=== PATIENT | female | born 2005 | race Caucasian/White ===

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

== ENCOUNTER 2023-07-27 14:00 | Outpatient (CLI) | payer OTHER, SELFPAY ==
--- OUTSIDE RECORDS SUMMARY | 2023-07-27 14:04 | XMS_ITS | Encounter Summary ---
Author Name Unknown Organization [facility] Address [address] [facility] [place] [address] Phone Care Team Providers Care Ham Boner Name Role Phone Unavailable Primary Care Provider Unavailabl e Reason for Visit * Reason Comments Follow-up Encounter Details Date Type Department Care Team (Late st Contact Info) Description 05/09/2023 Documentation Only [facility] [address] [place] [id number] Chato Zazueta, PharmD [address] [place], [place] [id number] Follow-up Social History Tobacco Use Types Packs/Day Years Used Date Smoking Tobacco: Never Assessed Sex and Gender Information Value Date Recorded Sex Assigned at Not on file Gender Identity Not on file Sexual Orientation Not on file documented as of this encounter Progress Notes * Chato Zazueta, PharmD - 05/09/2023 3:49 PM CSTSummary: nPEP follow up Called Clarissa. Clarissa reported that she is taking the medicines as prescribed is finding that ondansetron helps with nausea caused my the regimen. Advised her to call us on [phone] if any problems or if ondansetron is going to run out. She agreed that could call her back at 14 days. Chato Zazueta, PharmD, 05/09/2023 3:51 PM STOCK BLANK HANDLER documented in this encounter Plan of Treatment Not on file documented as of this encounter Visit Diagnoses Not on filedocumented in this encounter
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
--- OUTSIDE RECORDS SUMMARY | 2023-07-27 14:04 | XMS_ITS | Encounter Summary ---
Author Name Unknown Organization [facility] Address [address] [place] [id number] Phone Care Team Providers Care Chief Clinical Officer Name Role Phone Unavailable Primary Care Provider Unavailabl e Encounter Details Date Type Department Care Team (Late st Contact Info) Description 05/07/2023 ZAY COLLAZO [address] [place] [address] Rachel Younger RN [facility] [address] [place] [address] Social History Tobacco Use Types Packs/Day Years Used Date Smoking Tobacco: Never Assessed Sex and Gender Information Value Date Recorded Sex Assigned at Not on file Gender Identity Not on file Sexual Orientation Not on file documented as of this encounter Plan of Treatment Not on file documented as of this encounter Visit Diagnoses Not on filedocumented in this encounter
--- OUTSIDE RECORDS SUMMARY | 2023-07-27 14:04 | XMS_ITS | Encounter Summary ---
Author Name Unknown Organization [facility] Address [address] [place] [id number] Phone Care Team Providers Care Resident Hall Director Name Role Phone Unavailable Primary Care Provider Unavailabl e Encounter Details Date Type Department Care Team (Latest Contact Info) Description 05/07/2023 Travel Social History Tobacco Use Types Packs/Day Years [...]
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
--- OUTSIDE RECORDS SUMMARY | 2023-07-27 14:04 | XMS_ITS | Clinical Summary ---
Author Name Unknown Organization [facility] Address [place], [place] [address] Care Team Providers Care Manager Equipment Name Role Phone Noelle Peña MD Primary Care Provi rosanne Allergies No known active allergies Medications Medication Sig Dispensed Refills Start Date End Date Status EPINEPHrine (EPIPEN) 0.3 mg/0.3 mL injection INJECT 0.3 MG IM ONCE 0 11/22/2017 Active Adapalene 0.3 % topical gel APPLY PEA SIZED AMOUNT TO FACE NIGHTLY 08/24/2019 Active clindamycin 1% (CLEOCIN-T) 1 % lotion USE EVERY MORNING DIRECTED 10/24/2019 Active hydrocortisone 2.5% cream APPLY TO NOSE CREASES TWICE DAILY DIRECTED 08/24/2019 Active ondansetron (ZOFRAN ODT) 8 mg disintegrating tablet PLEASE SEE ATTACHED FOR DETAILED DIRECTIONS 03/05/2020 Active lamoTRIgine (LAMICTAL) 200 mg tablet Take 200 mg by mouth once daily. 04/26/2021 Active LORazepam (ATIVAN) 1 mg tablet TAKE 12 TO 1 TABLET BY MOUTH EVERY SIX TO EIGHT HOURS NEEDED FOR PANIC ATTACKS. 05/06/2021 Active traZODone (DESYREL) 50 mg tablet TAKE 1-2 TABLET BY MOUTH EVERY NIGHT NEEDED START WITH 1 TABLET, MAY INCREASE TO 2 TABLETS DEPENDING ON RESPONSE 05/06/2021 Active acetaminophen (TYLENOL) 325 mg tabletIndications:S/ P laparoscopy Take 1-2 Tablets (325-650 mg) by mouth every 4 hours if needed (mild pain). Max acetaminophen dose: 4000mg in 24 hrs. 100 Tablet 12/01/2021 Active ibuprofen (ADVIL; MOTRIN) 200 mg tabletIndications:S/ P laparoscopy Take 2-4 Tablets (400-800 mg) by mouth every 6 hours if needed for Pain (mild pain). 100 Tablet 12/01/2021 Active sertraline (ZOLOFT) 100 mg tablet Take 100 mg by mouth. 03/09/2022 Active diphenhydrAMINE (BENADRYL) 25 mg tablet Take 25 mg by mouth. 06/12/2022 Active dextroamphetamine-am phetamine (ADDERALL XR) 10 mg Extended-Release capsule TAKE 1 CAPSULE BY MOUTH EVERY MORNING WITH FOOD Active lamoTRIgine (LAMICTAL XR) 200 mg Extended-Release tablet 1 tablet Active SUMAtriptan (IMITREX) 50 mg tabletIndications:Mi graine with aura and without status migrainosus, not intractable Take 0.5 Tablets (25 mg) by mouth every 2 hours if needed for Migraine. Give at minimum 2hrs apart. Max Dose: 200mg per 24hrs. 20 Tablet 10/28/2022 Active propranoloL (INDERAL) 20 mg tabletIndications:PO TS (postural orthostatic tachycardia syndrome) TAKE 1 TABLET (20 MG) BY MOUTH ONCE DAILY. 30 Tablet 2 02/11/2023 Active Hospital, Clinic, or Other Facility Administered Medication Ordered Dose Route Frequency Start Date End Date Status etonogestrel subdermal implant (NEXPLANON) 1 EachIndications:Nexplanon insertion 1 Each Sdrm Q 3 YEARS 02/16/2021 Active Active Problems Problem Noted Date Diagnosed Date Recurrent streptococcal tonsillitis 10/28/2022 Tonsillar and adenoid hypertrophy 10/28/2022 Migraine with aura and witho ut status migrainosus, not intractable 10/28/2022 S/P laparoscopy - diagnostic, no endometriosis n oted 12/01/2021 S/P cystoscopy - grossly normal findings 022 Encounter for Nexplanon removal 12/01/2021 Constipation by delayed colonic transit 06/02/19 Overactive bladder 06/01/2021 Dysuria 06/01/2021 POTS (postural orthostatic tachycardia syndrome) 06/01/2021 Generalized anxiety disorder 09/25/2018 Mild episode of recurrent major depressive disor rosanne 09/25/2018 Resolved Problems Problem Noted Date Diagnosed Date Resolved Date IUD (intrauterine device) in place 12/01/2021 10/28/2022 Encounter for IUD insertion 12/01/2021 10/28/2022 Migraine with aura and with status migrainosus, not intractable 11/11/2021 10/28/2022 Eating disorder 11/03/2020 10/28/2022 Ganglion of left wrist 09/05/201801/05 Overview: Two Adjustment disorder with mix ed anxiety and depressed mood 04/04/2018 09/25/2018 Osteochondroma of left tibia 01/30/2018 04/04/2018 Anxiety 06/24/2017 09/25/2018 Encounters Date Type Department Care Team Description 06/13/2023 Orders Only [facility] Scanner 1 scan: (1-Ord) [facility], CHEST 2 VIEWS, 06/13/2023 from Last 3 Months Immunizations Name Administration Dates Next Due COVID-19 vaccine ([employer] 30mcg/0.3mL) 12YO+ GALDINO-SUCROSE PF, MDV 11/05/2021 COVID-19 vaccine ([employer] 30mcg/0.3mL) PF, MDV 01/31/2021 DTaP-HIB (TriHIBIT) 08/27/2004 MGrO-IaxP-ABE (Pediarix) 2003,2003,0 2003 DTaP-IPV (Kinrix) 10/02/2008 HIB PRP-OMP (PedvaxHIB) 2003,2003 HIB PRP-T (ActHIB,Hiberix) 2003 HPV 9 (Gardasil 9) 11/28/2018,09/16/2017 Hepatitis A (Peds) 10/02/2008,12/21/2006 Influenza A (H1N1), Inactivated 12/04/2019 Influenza A (H1N1), Live Intranasal 01/21/2009 Influenza Virus, Unspecified 02/02/2008, 12/21/2006,03/02/2006,01/12,01/01/2004 Influenza, IIV4 02/16/2021,01/06/2018 Influenza, IIV4 (Age 6-35 Mos) 03/02/2006,2004,01/01/2004 Influenza,CCIIV4 PRESERV FREE 12/21/2006 Influenza,LAIV4 Live Intrana elly (Flumist) 01/18/2020,01/05/2019,02/19/2013,02/06,01/08/2010,02/02/2008 MMR 10/02/2008,05/21/2004 Meningococcal Vaccine (Menveo) 01/18/2020,2015 Pneumococcal conj 7-Valent (Prevnar 7) 0 08/27/2004,2003,2003,07/24 Tdap 11/07/2015 Varicella Vaccine 10/02/2008,05/21/2004 Family History Medical History Relation Name Comments OCD Mother Anxiety disorder Paternal Aunt Anesthesia Problem No Family History Clotting disorder No Family History Relation Name Status Comments Mother Paternal Aunt Social History Tobacco Use Types Packs/Day Years Used Date Smoking Tobacco: Never Smokeless Tobacco: Never Tobacco Cessation:Counseling Given: No Comments:no exposure Alcohol Use Standard Drinks/Week Comments Not Currently 0 (1 standard drink = 0.6 oz pur e alcohol) PHQ-2 Answer Date Recorded PHQ-2 TOTAL SCORE 3 10/28/2022 Social Connections Answer Date Recorded Frequency of Communication with Friends and Fami ly Not on file 03/21/2021 Financial Resource Strain Answer Date R ecorded Difficulty of Paying Living Expenses Not on file 03/21/2021 Difficulty of Paying Living Expenses Not on file 03/21/2021 Sex and Gender Information Value Date Recorded Sex Assigned at Not on file Gender Identity Not on file Sexual Orientation Not on file Obstetrics History Para Term AB IAB SAB Ectopic Multiple Livin g Live Births 0 0 0 0 0 0 0 0 0 0 0 Last Filed Vital Signs Vital Sign Reading Time Taken Comments Blood Pressure 95/65 10/28/2022 8:22 AM CDT Pulse 86 10/28/2022 8:22 AM CDT Temperature 36.7 ??C (98.1 ??F) 12/01/2021 1:14 PM CD T Respiratory Rate 15 12/01/2021 1:47 PM CDT Oxygen Saturation 96% 10/28/2022 8:22 AM CDT Inhaled Oxygen Concentration - - Weight 63.9 kg (140 lb 12.8 oz) 10/28/2022 8:22 AM CDT Height 173 cm (5' 8.11) 10/28/2022 8:22 AM CDT Body Mass Index 21.34 10/28/2022 8:22 AM CDT Plan of Treatment Upcoming Encounters Date Type Department Care Team (Late st Contact Info) Description 07/28/2023 11:05 AM CDT Office Visit [facility] [address] [place] [address] Noelle Peña MD [address] [place] [address] Health Maintenance Due Date Last Done Comments HIV for age 15-65 2018 Hepatitis C screening for age 18-79 2021 Well Child Check for age 3-20 06/01/2022 06/01/2021, 01/18/2020, 04/04/2018 COVID-19 vaccine series ( season) 2022 11/05/2021, 01/31/2021, 11/17/2020 Chlamydia for age 16-24 06/13/2023 06/13/19 23 (Verified in Care Everywhere or Patient Record), 11/05/2021, 06/01/2021, Additional history exists BMI (ht and wt on same day) for age 18+ 10/29/2023 10/28/2022, 11/05/2021, 06/01/2021 Depression screening for age 12+ 10/29/2023 10/28/2022, 06/01/2021, 02/16/2021, Additional history exists Influenza for age 9-49 11/20/2023 , 01/18/2020, 12/04/2019, Additional history exists Tetanus booster 11/06/2025 11/07/2015 Pneumococcal series for age 6-64 Aged Out 08/27/2004, 2003, 2003, Additional history exists No longer eligible based on patient's age to complete this topic Tdap Completed 11/07/2015 HPV series for age 9-26 Completed 11/28/2018, 09/16 Meningococcal series for age 11-21 Completed 01/18/2020, 11/07/2015 Procedures Procedure Name Priority Date/Time Associated Diagnosis Comments SCAN-RADIOLOGY REPORT 06/13/2023 12:00 AM CDT GC CHLAMYDIA TRACH PROBE Routine 11/05/2021 10:00 AM CDT Pelvic pain from Last 3 Months or Most Recently Relevant to Health Maintenance Results * SCAN-RADIOLOGY REPORT (06/13/2023 12:00 AM CDT) Anatomical Region Laterality Modality Other Scanner OTHER * GC & CHLAMYDIA DNA PCR [[id number]] (11/05/2021 10:00 AM CDT) CHLAMYDIA PROBE Negative 2:34 AM CDT [facility] N GONORRHOEAE PROBE Negative 11/06/2021 2:34 AM CDT [facility] Other VAGINAL SWAB / Unknown Non-Blood / Unknown 11/05/2021 10:00 AM CDT 11/05/2021 10:19 AM CDT Gladis Yang MD MICROBIOLOGY [facility] [address] [place] [address], from Last 3 Months or Most Recently Relevant to Health Maintenance Advance Directives * Full Code (Latest Code Status on File) Date Activated Date Inactivated Comments 12/01/2021 9:51 AM 12/01/2021 4:34 PM Question Answer Comments Code Status Discussion: Reviewed Preferences Care Teams Manager Equipment Relationship Specialty Start Date End Date Noelle Peña MD [address] [place] [address] PCP - General Pediatric 06/22/17
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
--- OUTSIDE RECORDS SUMMARY | 2023-07-27 14:04 | XMS_ITS | Encounter Summary ---
Author Name Unknown Organization [facility] Address [address] [place] [address] Phone Care Team Providers Care Director Institution Name Role Phone Unavailable Primary Care Provider Unavailabl e Encounter Details Date Type Department Care Team (Late st Contact Info) Description 05/30/2023 Documentation Only [facility] [place] [address] [place] [id number] Jesus Sofia, PharmD [address] [place] [address] Social History Tobacco Use Types Packs/Day Years Used Date Smoking Tobacco: Never Assessed Sex and Gender Information Value Date Recorded Sex Assigned at Not on file Gender Identity Not on file Sexual Orientation Not on file documented as of this encounter Progress Notes * Jesus Sofia, PharmD - 05/30/2023 2:19 PM CDT nPEP 2 week follow up call placed and pt's nausea is completely gone. She feels like she will finish meds and will call us with any questions. Jesus Sofia, PharmD, 05/30/2023 2:20 PM documented in this encounter Plan of Treatment Not on file documented as of this encounter Visit Diagnoses Not on filedocumented in this encounter
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
--- OUTSIDE RECORDS SUMMARY | 2023-07-27 14:05 | XMS_ITS | Clinical Summary ---
Author Name Unknown Organization [facility] Address [address] [place] [address] Care Team Providers Care Mopper Name Role Phone Noelle Peña MD Primary Care Provider [phone] Source Comments You are receiving this document as you are listed as the primary care provider,follow-up provider, or the patient has been referred to you for consultation.This is in compliance with the Medicare and[facility] EHR Incentive Program,which states Providers who transition their patient to another setting of careor provider of care or refers their patient to another provider of care shouldprovide summary care record for each transition of care or referral. [facility] Allergies No known active allergies Medications Medication Sig Dispensed Refills Start Date End Date Status aluminum chloride (DRYSOL) 20 % external solution Apply topically. 10/25/2017 A ctive cetirizine (ZYRTEC) 10 MG tablet TAKE 0.5 TABLET BY MOUTH TWICE A DAY DIRECTED 6 12/28/2017 Active EPINEPHrine (EPIPEN) 0.3 MG/0.3ML injection INJECT 0.3 MG IM ONCE 0 11/22/2017 Active Norethin Trevor-Eth Estrad-FE (JUNELFE04/09) 1-20 MG-MCG tablet Take 1 Tablet by mouth. 01/06/2018 Active hydrOXYzine HCl (ATARAX) 10 MG tablet TAKE 1 TABLET BY MOUTH EVERY 8 HOURS IF NEEDED. 2 04/04/2018 Active acetaminophen (TYLENOL) 500 MG tablet Take 1 Tablet by mouth every 4 hours as needed for Pain (Mild Pain). Maximum acetaminophen dose is 4000 mg in 24 hours 100 Tablet 11 09/15/2018 Active ibuprofen (MOTRIN) 200 MG tablet Take 2 Tablets by mouth every 6 hours as needed for Pain (Mild Pain). This may be safely mixed with the prescription pain medications (oxycodone, hydrocodone or tramadol.)?? This may also be safely mixed with acetaminophen. 100 Tablet 09/15/2018 Active DULoxetine (CYMBALTA) 20 MG capsule TAKE 1 CAPSULE BY MOUTH EVERY EVENING AFTER MEAL 09/26/2019 Active clindamycin (CLEOCIN T) 1 % lotion USE EVERY MORNING DIRECTED 08/24/2019 Active adapalene (DIFFERIN) 0.3 % gel APPLY PEA SIZED AMOUNT TO FACE NIGHTLY 08/24/2019 Active hydrocortisone 2.5 % cream APPLY TO NOSE CREASES TWICE DAILY DIRECTED 08/24/2019 Active prazosin (MINIPRESS) 1 MG capsule TAKE 1 CAPSULE BY MOUTH EVERYDAY AT BEDTIME 09/26/2019 Active tolterodine (DETROLLA) 4 MG 24 hour release capsule 04/04/2019 Acti ve mupirocin calcium (BACTROBAN) 2 % cream Apply topically three times a day. 15 g 02/06/2020 Active Additional Information Patient not taking.Reported on 12/23/2021 ursodiol (ACTIGALL) 300 MG capsule 03/18/2020 Active omeprazole (PRILOSEC) 40 MG capsule Take 40 mg by mouth daily before breakfast. 03/27/2020 Active ondansetron (ZOFRAN-ODT) 8 MG disintegrating tablet PLEASE SEE ATTACHED FOR DETAILED DIRECTIONS 03/05/2020 Active methylPREDNISolone (MEDROL 21 TABLET DOSEPACK) 4 MG tablet Follow package directions 21 Tablet 05/06/2020 Active Additional Information Patient not taking.Reported on 07/23/2021 fluocinonide (LIDEX) 0.05 % external solution APPLY TO AFFECTED AREAS OF THE SCALP TWICE DAILY DIRECTED 06/30/2020 Active ketoconazole (NIZORAL) 2 % shampoo 06/30/2020 Active propranolol (INDERAL) 20 MG tablet 07/15/2020 Active amphetamine-dextroam phetamine (ADDERALL) 5 MG tablet TAKE ONE TABLET BY MOUTH TWICE A DAY IN THE MORNING AFTER BREAKFAST AND AROUND NOON 11/12/2020 Active DULoxetine (CYMBALTA) 30 MG capsule 90 mg daily. 01/28/2021 Active lamoTRIgine (LAMICTAL) 25 MG tablet TAKE ONE TABLET DAILY FOR 2 WEEKS THEN TWO TABLETS DAILY FOR 2 WEEKS 11/12/2020 Active LORazepam (ATIVAN) 0.5 MG tablet TAKE 1-2 TABLET BY MOUTH EVERY SIX TO EIGHT HOURS NEEDED FOR PANIC ATTACKS. 02/04/2021 Active QUEtiapine ER (SEROQUEL XR) 50 MG 24 hour release tablet TAKE 1-2 TABLETS BY MOUTH AT BEDTIME. START WITH TAKING 1 TABLET AT BEDTIME, DEPENDING ON RESPONSE MAY INCREASE TO 2 TABLETS NIGHTLY AFTER 1 12/09/2020 Active MICROGESTIN FE 1.5-30 MG-MCG tablet Take 1 Tablet by mouth daily. 01/01/2021 Active Active Problems Problem Noted Date Diagnosed Date Osteochondroma of left tibia 01/31/2018 Overview: Added automatically from request for surgery [id number] Cough 02/11/2007 Immunizations Name Administration Dates Next Due [id number] (Pediarix) 2003,2003,0 2003 DTaP-IPV (Kinrix, 4-6 yrs) 10/02/2008 DTaP/Hib 08/27/2004 Flu Vac Preserv Free (3+yrs) 12/21/2006 Flu Vac Preserv Free (6-35 mo) 03/02/2006,2004,01/01/2004 H1n1 Laiv Medimmune 2-49 Yr (Intranasal) 01/21/2009 HepA Ped/Adol (1-18 yrs) 10/02/2008,12/21/2006 Hib (ActHIB) 2003 Hib (PedvaxHIB) 2003,2003 Influenza LAIV (Nasal, 2-49 yrs) 02/19/2013,12/20,02/02/2008 Influenza Vaccine TIV, Nasal 02/06/2011 MCV4 Menveo 2m.+ (two vial) 11/07/2015 MMR 10/02/2008,05/21/2004 Pneumococcal 7, PED 08/27/2004, 4,2003,2003 TDAP (BOOSTRIX) 11/07/2015 Varicella 10/02/2008,05/21/2004 Family History Medical History Relation Name Comments Migraines Mother OCD Mother Heart Disease Paternal Grandfather Rheumatologic Disease Paternal Grandmother Amblyopia/Strabismus Negative Family History Cataract Negative Family History Diabetes Negative Family History Glaucoma Negative Family History Macular Degeneration Negative Family History Retinal Detachment Negative Family History Relation Name Status Comments Father Alive Mother Alive Maternal Grandmother Alive Paternal Grandfather Alive Paternal Grandmother Alive Social History Tobacco Use Types Packs/Day Years Used Date Smoking Tobacco: Never Smokeless Tobacco: Never Alcohol Use Standard Drinks/Week Comments Yes 0 (1 standard drink = 0.6 oz pur e alcohol) Sex and Gender Information Value Date Recorded Sex Assigned at Not on file Gender Identity Not on file Sexual Orientation Not on file Last Filed Vital Signs Vital Sign Reading Time Taken Comments Blood Pressure 91/53 12/23/2021 6:27 PM CDT Pulse 122 12/23/2021 6:27 PM CDT Temperature 37 ??C (98.6 ??F) 12/23/2021 6:27 PM CDT Respiratory Rate 18 12/23/2021 6:27 PM CDT Oxygen Saturation 100% 12/23/2021 6:27 PM CDT Inhaled Oxygen Concentration - - Weight 70.3 kg (155 lb) 02/06/2021 4:49 PM WEB PROGRAMMER Height 167.6 cm (5' 6) 02/06/2021 4:49 PM WEB PROGRAMMER Body Mass Index 25.02 02/06/2021 4:49 PM WEB PROGRAMMER Plan of Treatment Health Maintenance Due Date Last Done Comments Hep C Screening (Preventive Services) 2003 HIV Screening (Preventive Services) 2019 Adult Preventive Visit 2021 COVID-19 Vaccine ( season) 2022 11/05/2021, 01/31/2021, 11/17/2020 Chlamydia 06/13/2023 06/12/2022, 10/19, 06/01/2021 Influenza (Season Ended) 2023 021, 01/18/2020, 01/05/2019, Additional history exists DTaP/Tdap/Td (7 - Tdap) 11/06/2025 11/07/19 16, 10/02/2008, 08/27/2004, Additional history exists Zoster/Shingles (1 of 2) 2053 HepB Completed 2003, 03/2003, 2003 Hib Completed 08/27/2004, 09/2003, 2003, Additional history exists Pneumococcal Aged Out 08/27/2004, 09/2003, 2003, Additional history exists No longer eligible based on patient's age to complete this topic HepA Completed 10/02/2008, 12/21/2006 IPV (Polio) Completed 10/02/2008, 09/2003, 2003, Additional history exists Varicella Completed 10/02/2008, 05/21/2004 HPV Vaccine Completed 11/28/2018, 09/16/2017 MCV4 Completed 01/18/2020, 11/07/2015 Advance Directives * Full Code (Latest Code Status on File) Date Activated Date Inactivated Comments 02/01/2018 11:28 AM 02/01/2018 4:25 PM Care Teams Mopper Relationship Specialty Start Date End Date Noelle Peña MD [address] [place] [address] PCP - General Pediatric Medicine 02/01/18
--- OUTSIDE RECORDS SUMMARY | 2023-07-27 14:05 | XMS_ITS | Clinical Summary ---
Author Name Unknown Organization [facility] Address [address] [place] [address] Care Team Providers Care Drum Sprayer Name Role Phone Noelle Peña MD Primary Care Provider [phone] MarcelaCatalinaElif Unavailable [phone] Allergies No known active allergies Medications Medication Sig Dispensed Refills Start Date End Date Status OMEPRAZOLE PO Take 40 mg by mouth daily Active Multiple Vitamins-Minerals (MULTIVITAMIN ADULTS PO) 2 gummies daily. Active Pravastatin Sodium (PRAVACHOL PO) 1 mg three times a day. Active DULoxetine (CYMBALTA) 20 MG capsule Take 20 mg by mouth daily Active tolterodine (DETROL) 2 MG tablet Take 2 mg by mouth daily Active ursodiol (ACTIGALL) 300 MG capsule Take 300 mg by mouth 2 times daily Active norethin-eth estradiol-fe (GILDESS 24 FE) 1-20 MG-MCG(24) tablet Take 1 tablet by mouth daily Active hydrOXYzine (ATARAX) 10 MG tablet Take 10 mg by mouth as needed for itching Active EPINEPHrine (ADRENACLICK JR) 0.15 MG/0.15ML injection 2-pack Inject 0.15 mg into the muscle as needed for anaphylaxis Active hydrocortisone 2.5 % cream Apply topically as needed Active adapalene (DIFFERIN) 0.1 % external cream Apply topically as needed Active amphetamine-dextroa mphetamine (ADDERALL XR) 10 MG 24 hr capsule TAKE 1 CAPSULE BY MOUTH EVERY MORNING WITH FOOD 02/04/2022 Active lamoTRIgine (LAMICTAL) 200 MG tablet Take 200 mg by mouth 04/26/2021 Acti ve LORazepam (ATIVAN) 2 MG tablet Take 2 mg by mouth 2 times daily 01/05/2022 Active propranolol (INDERAL) 20 MG tablet 06/12/2020 Active QUEtiapine (SEROQUEL XR) 50 MG TB24 24 hr tablet TAKE 1-2 TABLETS BY MOUTH AT BEDTIME. START WITH TAKING 1 TABLET AT BEDTIME, DEPENDING ON RESPONSE MAY INCREASE TO 2 TABLETS NIGHTLY AFTER 1 12/09/2020 Active traZODone (DESYREL) 50 MG tablet TAKE 1-2 TABLET BY MOUTH EVERY NIGHT NEEDED START WITH 1 TABLET, MAY INCREASE TO 2 TABLETS DEPENDING ON RESPONSE 05/06/2021 Active diphenhydrAMINE (BENADRYL) 25 MG tablet Take 1 tablet (25 mg) by mouth every 6 hours as needed for itching or allergies 4 tablet 06/12/2022 Active Immunizations Name Administration Dates Next Due Influenza (H1N1) 12/04/2019 Social History Tobacco Use Types Packs/Day Years Used Date Smoking Tobacco: Never Smokeless Tobacco: Never Tobacco Cessation:Counseling Given: Not Answered PHQ-2 Answer Date Recorded PHQ-2 Score 0 04/02/2020 Adolescent Education Answer Date Record ed Getting School Help Needed Not on file 12/25 Sex and Gender Information Value Date Recorded Sex Assigned at Not on file Gender Identity Not on file Sexual Orientation Not on file Last Filed Vital Signs Vital Sign Reading Time Taken Comments Blood Pressure 118/63 06/12/2022 5:01 PM CDT Pulse 84 06/12/2022 5:01 PM CDT Temperature 36.6 ??C (97.9 ??F) 06/12/2022 2:20 PM CD T Respiratory Rate 18 06/12/2022 2:20 PM CDT Oxygen Saturation 100% 06/12/2022 5:02 PM CDT Inhaled Oxygen Concentration - - Weight 61.2 kg (135 lb) 06/12/2022 2:20 PM CDT Height 170.2 cm (5' 7) 06/12/2022 2:20 PM CDT Body Mass Index 21.14 06/12/2022 2:20 PM CDT Plan of Treatment Health Maintenance Due Date Last Done Comments ADVANCE CARE PLANNING 2003 ANNUAL REVIEW OF HM ORDERS 2003 LIPID 2003 HIV SCREENING 2018 HEPATITIS C SCREENING 2021 YEARLY PREVENTIVE VISIT 06/01/2022 06/01/2021, 01/17 COVID-19 Vaccine ( season) 2022 11/05/2021, 01/31/2021, 11/17/2020 PHQ-2 (once per calendar year) 2023 04/02/2020 CHLAMYDIA SCREENING 06/13/2023 06/12/2022, 06/12/2022, 11/05/2021, Additional history exists INFLUENZA VACCINE (Season Ended) 2023 02/16/2021, 01/18/2020, 12/04/2019, Additional history exists DTAP/TDAP/TD IMMUNIZATION (7 - Td or Tdap) 11/06/2025 11/07/2015, 10/02/2008, 08/27/2004, Additional history exists HEPATITIS B IMMUNIZATION Completed 004, 2003, 2003 Pneumococcal Vaccine: Pediatrics (0 to 5 Years) and At-Risk Patients (6 to 64 Years) Aged Out 08/27/2004, 2003, 2003, Additional history exists No longer eligible based on patient's age to complete this topic IPV IMMUNIZATION Completed 10/02/2008, 09/2003, 2003, Additional history exists HPV IMMUNIZATION Completed 11/28/2018, 09/16/2017 MENINGITIS IMMUNIZATION Completed 01/18/2020, 11/06 RSV MONOCLONAL ANTIBODY Aged Out No l onger eligible based on patient's age to complete this topic Procedures Procedure Name Priority Date/Time Associated Diagnosis Comments CHLAMYDIA TRACHOMATIS PCR STAT 06/12/2022 6:22 PM CDT from Last 3 Months or Most Recently Relevant to Health Maintenance Results * Chlamydia trachomatis PCR (06/12/2022 6:22 PM CDT) Chlamydia trachomatis Negative Negative 06/13/2022 12:20 PM CDT [facility] Comment:A negative result by miter grinder operator mediated amplification does not preclude the presence of C. trachomatis infection because results are dependent on proper and adequate collection, absence of inhibitors and sufficient rRNA to be detected. Urine VOIDED URINE SPECIMEN / Unknown Non-blood Collection / Unknown 06/12/2022 6:22 PM CDT 06/12/2022 6:31 PM CDT Maria Fernanda Hager MD LAB - MICRO GENERAL ORDERABLES [facility] Inf. Diseases Diag. Lab [address] [facility] [place] [address], [facility] [phone] from Last 3 Months or Most Recently Relevant to Health Maintenance Care Teams Drum Sprayer Relationship Specialty Start Date End Date Noelle Peña MD PCP - General Pediatrics 12/02/17 [facility] [address] [place] [address] Gastroenterology 04/09/20
--- OUTSIDE RECORDS SUMMARY | 2023-07-27 14:05 | XMS_ITS | Referral Summary ---
Author Name Unknown Organization [facility] Address [address] [place] [address] Care Team Providers Care Return To Service Inspector Name Role Phone Noelle Peña MD Primary Care Provider [phone] MarcelaCatalinaElif Unavailable [phone] Allergies No known active allergies Medications Medication [...] 06/12/2022 2:20 PM CDT Plan of Treatment Not on file Procedures Procedure Name Priority Date/Time Associated Diagnosis Comments CHLAMYDIA TRACHOMATIS PCR STAT 06/12/2022 6:22 PM CDT from Last 3 Months or Most Recently Relevant to Health Maintenance Results * Chlamydia trachomatis PCR (06/12/2022 6:22 PM CDT) Chlamydia trachomatis Negative Negative 06/13/2022 12:20 PM CDT [facility] Comment:A negative result by speech and language tutor mediated amplification does not preclude the presence of C. trachomatis infection because results are dependent on proper and adequate collection, absence of inhibitors and sufficient rRNA to be detected. Urine VOIDED URINE SPECIMEN / Unknown Non-blood Collection / Unknown 06/12/2022 6:22 PM CDT 06/12/2022 6:31 PM CDT Maria Fernanda Hager MD LAB - MICRO GENERAL ORDERABLES [facility] Inf. Diseases Diag. Lab [address] [facility] [place] [address], [facility] [phone] from Last 3 Months or Most Recently Relevant to Health Maintenance Care Teams Return To Service Inspector Relationship Specialty Start Date End Date Noelle Peña MD PCP - General Pediatrics 12/02/17 [facility] [address] [place] [address] Gastroenterology 04/09/20
--- OUTSIDE RECORDS SUMMARY | 2023-07-27 14:05 | XMS_ITS | Encounter Summary ---
Author Name Unknown Organization [facility] Address [address] [place] [address] Care Team Providers Care Fish Smoker Name Role Phone Noelle Peña MD Primary Care Provider [phone] El[facility] Medrano Unavailable Serena Castañeda MD Unavailable [phone] Serena Castañeda MD Unavailable [phone] Encounter Details Date Type Department Care Team (Late st Contact Info) Description 11/21/2021 Orders Only [facility] Centralized Scheduling [address] [place] [address] Demetris Green MD [address] [place] [address] Suspected COVID-19 virus infection Social History Tobacco Use Types Packs/Day Years Used Date Smoking Tobacco: Never Smokeless Tobacco: Never PHQ-2 Answer Date Recorded PHQ-2 Score 0 04/02/2020 Sex and Gender Information Value Date Recorded Sex Assigned at Not on file Gender Identity Not on file Sexual Orientation Not on file documented as of this encounter Plan of Treatment Not on file documented as of this encounter Visit Diagnoses Diagnosis Suspected COVID-19 virus infection documented in this encounter Additional Health Concerns Infection Onset Date Last Indicated Resolved Time Influenza 02/07/2022 02/07/2022 02/14/2022 11:3 9 PM RN CALL CENTER Rule Out COVID-19 02/27/2022 02/27/2022 02/27/2022 8:56 PM RN CALL CENTER documented as of this encounter Care Teams Fish Smoker Relationship Specialty Start Date End Date Noelle Peña MD PCP - General Pediatrics 12/02/17 El[facility] [address] [place] [address] Gastroenterology 04/09/20 Serena Castañeda MD [address] [place] [address] Assigned PCP 03/20/20 03/05/22 Serena Castañeda MD [address] [place] [address] Assigned PCP 05/15/22 04/13/23 documented as of this encounter
[2023-07-27 19:36] LABS: Chlamydia DNA Amplified* NOT DETECTED (No Detected); GC DNA Amplified* NOT DETECTED (No Detected)
== END 2023-07-27 14:01 | disposition home or self-care (01) ==
LOC: NFLDREF 14:00
PROVIDERS: PCP Pediatrics; Visit Provider Physician Assistant
DX: R10.2 Pelvic and perineal pain (principal); Z11.3 Encounter for screening for infections with a predominantly sexual mode of transmission
CPT/HCPCS: 87086; 87491; 87591

== ENCOUNTER 2024-02-08 15:56 | Outpatient (CLI) | payer OTHER, SELFPAY ==
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
--- NOTE | 2024-02-08 16:00 | CRLHL7_ITS ---
For Patients: As a result of the Century Cures Act, medical imaging exams and procedure reports are released immediately into your electronic medical record. You may view this report before your referring provider. If you have questions, please contact your health care provider. Indication: Chronic sinusitis. Technique: Noncontrast axial CT of the paranasal sinuses with coronal reformats are provided. No comparisons. Findings: Trace mucosal thickening within scattered right ethmoid air cells. The remainder of the visualized paranasal sinuses are clear. The ostiomeatal complexes are patent bilaterally. The visualized intraorbital contents appear within normal limits. Impression: 1. Minor inflammatory change within the right ethmoid air cells. 2. Otherwise, unremarkable CT of the paranasal sinuses. Please note that all CT scans at this facility use dose modulation, iterative reconstruction, and/or weight-based dosing when appropriate to reduce radiation dose to as low as reasonably achievable. Dictated by Neo Lopez MD @ 02/09/2024 9:11:11 AM (Electronically Signed)
--- OUTSIDE RECORDS SUMMARY | 2024-02-08 16:00 | XMS_ITS | Encounter Summary ---
Author Organization [facility] Address [address] [place] [address] Care Team Providers Care Commissary Assistant Name Role Phone Noelle Peña MD Primary Care Provider [phone] Elif Medrano Unavailable [phone] Serena Castañeda MD Unavailable [phone] Serena Castañeda MD Unavailable [phone] Encounter Details Date Type Department Care Team (Late st Contact Info) Description 11/21/2021 Orders Only [facility] Centralized Scheduling [address] [place] [address] Demetris Green MD [address] [place] [address] Suspected COVID-19 virus infection Social History Tobacco Use Types Packs/Day Years Used Date Smoking Tobacco: Never Smokeless Tobacco: Never PHQ-2 Answer Date Recorded PHQ-2 Score 0 04/02/2020 Comments Unknown Sex and Gender Information Value Date Recorded Sex Assigned at Not on file Legal Sex Female 4:32 AM BALE TIE MACHINE OPERATOR Gender Identity Not on file Sexual Orientation Not on file documented as of this encounter Plan of Treatment Not on file documented as of this encounter Visit Diagnoses Diagnosis Suspected COVID-19 virus infection documented in this encounter Additional Health Concerns Infection Onset Date Last Indicated Resolved Time Influenza 02/07/2022 02/07/2022 02/14/2022 11:3 9 PM BALE TIE MACHINE OPERATOR Rule Out COVID-19 02/27/2022 02/27/2022 02/27/2022 8:56 PM BALE TIE MACHINE OPERATOR documented as of this encounter Care Teams Commissary Assistant Relationship Specialty Start Date End Date Noelle Peña MD PCP - General Pediatrics 12/02/17 El[facility] [address] [place] [address] Gastroenterology 04/09/20 Serena Castañeda MD [address] [place] [address] Assigned PCP 03/20/20 03/05/22 Serena Castañeda MD [address] [place] [address] Assigned PCP 05/15/22 04/13/23 documented as of this encounter
--- OUTSIDE RECORDS SUMMARY | 2024-02-08 16:00 | XMS_ITS | Data Portability ---
Author Organization [place] [facility] Address [address] [address] Care Team Providers Care Diagnostic Medical Sonographer Name Role Phone JOSEPH BAUTISTA OTHER RK LANCE Primary Care Provider NADIRA CORRAL Investment Manager Assessment Encounter Date Assessment Date Assessment LastModified by Organization Details LastModified Time 09/26/2023 09/26/2023 Today I reviewed the diagnosis, contributing factors and treatment options. I reviewed and reinforced continued use of self care and home exercises. I encouraged daily home care use which may consist of heat and ice compresses, oral habit reduction and relaxation techniques. The intraoral appliance was adjusted to patient comfort. Specifically, adjustments were made to balance the occlusion since it had heavier contacts on the right side. Retention was adequate. Splint was polished. Clarissa reported it being comfortable to wear it. We reviewed the importance of daily home self-care, including TUTA resting position and heat compresses. I encouraged her to wear the splint a few times during the day to help with jaw relaxation. I continue to recommend rehabilitation with physical therapy. She will be seeing Dr. Hilton (neurology) next month for evaluation of her chronic headaches. She will also have a follow-up visit next week with Dr. Corral (rheumatology) to discuss a trial of methotrexate. We discussed the pros and cons of MRI and agreed to wait until consultation with rheumatology next week. History today was obtained from the patient. The patient has 5+ diagnoses which we are addressing. Their symptoms are improving. This case is moderate complexity because of multiple diagnoses with chronic symptoms. Discussion with treatment team members after visit was necessary. Risk of complications include disease/symptom progression were discussed. Today time spent may have included a review of past records, history taking, review of diagnoses, contributing factors, treatment plan, diagnostic testing, prognosis, expectations, risks and complications of treatment/no treatment, discussions with other providers and completing documentation was 25 minutes. I suggested that (s)he return for follow-up care in 4 weeks. Not available 09/26/2023 18:54:36 10/24/2023 10/24/2023 Today I reviewed the diagnosis, contributing factors and treatment options. I reviewed and reinforced continued use of self care and home exercises. I encouraged daily home care use which may consist of heat and ice compresses, oral habit reduction and relaxation techniques. The intraoral appliance was adjusted to patient comfort. Specifically, adjustments were made to balance the occlusion since it had heavier contacts on the right side. Splint was polished. We discussed the importance of being consistent with daily home self-care and jaw exercises, including heat compresses. I continue to recommend rehabilitation with physical therapy. We reviewed the pros and cons of advanced imaging with MRI. We agreed to continue to defer it for now. We discussed the importance of rehabilitative treatment and briefly surgical treatment options, including my bias to treat conservatively whenever possible. She will have a follow up with Dr. Corral (rheumatology) in December to discuss adjusting the dose of methotrexate (she is also taking folic acid), and she will continue taking iron supplements (recommended by hematology for anemia). History today was obtained from the patient. The patient has 5+ diagnoses which we are addressing. Their symptoms are improving. This case is moderate complexity because of multiple diagnoses with chronic symptoms. Risk of complications include disease/symptom progression were discussed. Today time spent may have included a review of past records, history taking, review of diagnoses, contributing factors, treatment plan, diagnostic testing, prognosis, expectations, risks and complications of treatment/no treatment, discussions with other providers and completing documentation was 25 minutes. I suggested that (s)he return for follow-up care in 2-3 months. Not available 10/24/2023 16:00:42 11/01/2023 11/01/2023 Good increase in ROM of the jaw and decreased pain. Pt is in a more stable place with health issues and we were able to advance her gentle jaw stretching today. We will plan on one more visit before she returns to campus next week. [email or web address] Not available 11/01/2023 19:37:44 11/08/2023 11/08/2023 Reevaluation performed today to update and measure objective findings, modify goals as noted and modify POC frequency and duration. POC was modified today to plan for discharge from PT due to going back to college. Discussion of progress and new plan with patient with patient agreement. Patient is progressing with improvement. Clarissa has improved symptoms with less pain during chewing and wide opening. Still has some pain with yawns and neck pain complicated by body wide pains but she feels pleased with progress of her facial pain and is I with her HEP. Patient was educated about discharge with all final questions and concerns addressed. HEP was reviewed with instructions to continue mobility and strengthening to help manage pain and prevent re-injury and maintain progress. [email or web address] Not available 11/08/2023 19:28:51 01/30/2024 01/30/2024 Today I reviewed the diagnosis, contributing factors and treatment options. I reviewed and reinforced continued use of self care and home exercises. I encouraged daily home care use which may consist of heat and ice compresses, oral habit reduction and relaxation techniques. The intraoral appliance did not require additional adjustment since it had balanced occlusion and adequate retention. I encouraged her to wear it a few times during the day to help with jaw relaxation. Overall, Clarissa's TMJ pain remains unchanged with improved jaw tension/muscular symptoms. She still notes TMJ pain with daily function. We reviewed the pros and cons of advanced imaging. I recommended advanced imaging with MRI to clarify if the degenerative changes are secondary to mechanical joint issues or systemic inflammatory issues. Regarding her recent blood work, I asked if Clarissa can send me a copy for my review. We discussed re-engaging with physical therapy, but she notes availability issues to come to the appointments. We reviewed home jaw exercises and the importance of rehabilitative treatment. History today was obtained from the patient. The patient has 5+ diagnoses which we are addressing. Their symptoms are chronic. This case is moderate complexity because of multiple diagnoses with chronic symptoms. Risk of complications include disease/symptom progression were discussed. Today time spent may have included a review of past records, history taking, review of diagnoses, contributing factors, treatment plan, diagnostic testing, prognosis, expectations, risks and complications of treatment/no treatment, discussions with other providers and completing documentation was 25 minutes. I suggested that (s)he return for follow-up care in 3-4 weeks. Not available 01/30/2024 18:06:35 Plan of Treatment Reminders Order Date Submit Date Provider Last Modified By Organization Details Last Modified Time Details Appointments FOL-UP REVIEW MRI 2023 04:00P M MARCOS BURKETT O, DDS,MS Not available Not available Not available Lab None recorded. Referral None recorded. Procedures None recorded. Surgeries None recorded. Imaging MRI, temporoma ndibular joint(s), w/o contrast - Please contact patient to schedule. With and without contrast to rule out inflammat ory arthropat hy. 2023 024 [email or web address] [facility] [place], [facility], [address], [place], [address], 02/06/2024 09:34:28 Medication Orders None recorded. 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 11/07=goal met, significant 4 pt change*Patient will demonstrate the ability to open jaw to 40mm IO without compensations, noticeable difficulty or pain greater than 2/10 to be allow for adequate jaw function for chewing food of all types and consistencies without compensation or difficulty. 11/07= goal mostly met, still some mild pain at full range but doesn't limit her other than very wide opening. [email or web address] Not available 11/08/2023 19:30:02 Patient Instructions Encounter Date Encounter Id Patient Instructions Last Modified By Organization Details Last Modified Time 11/01/2023 [id number] Total treatment time minutes today = 45 Next Visit Plan: Remeasure opening - make sure pt has plan for muscle releases when at college. Ask about body armor or liquid IV. Likely DC to [facility] [place]. Patient/Therapist Goals: reduce head, jaw and neck tension. Progress Note Date: 10/25 >> 01/18 extended 2* pt only seen twice and visits still appropriate. [email or web address] Not available 11/01/2023 19:40:15 11/08/2023 [id number] Total treatment time minutes today = 40 Next Visit Plan: DC to college. Patient/Therapist Goals: reduce head, jaw and neck tension. Progress Note Date: 10/25 >> 01/18 extended 2* pt only seen twice and visits still appropriate. [email or web address] Not available 11/08/2023 19:30:10 Reason for Referral None Reported. Problems Name Problem SNOMED Code Status Onset Date Resolution Date Notes Provider Name and Address Organization Details Recorded Time Chronic tension-t ype headache 348105921 Active 2023 MARCOS NASCIMENT Carter DDS,MS [address], [place], [address], [facility] 4 18:02:09 Episodic migraine 956892846327 106 Active 2023 MARCOS NASCSOSA Machado DDS,MS [address], [place], [address], [facility] 4 18:02:17 Sleep related bruxism 492344109 Active 2023 MARCOS NASCIMENT Carter DDS,MS [address], [place], [address], [facility] 4 18:02:24 Bilateral temporoma ndibular joint pain 691270245986 69404 Active 2023 MARCOS NASCIMENT Carter DDS,MS [address], [place], [address], [facility] 4 18:09:46 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 Questiona ble degenerat alka changes of the left joint. MARCOS NASCIMENT O DDS,MS [address], [place], [address], [facility] 4 14:59:24 Myofascia l pain 939947434 Active 2023 MARCOS MADELAINE Machado, DDS,MS [address], [place], [address], [facility] 18:19:17 Problem Notes None recorded. Procedures Surgical History Date Name Laterality Status Provider Name and Address Organization Details Recorded Time 11/08/19 40285 - PT ReEval completed Kristy Newell DPT [email or web address], [place], [address], [facility] 11/08/2023 12:22:09 11/08/19 33368: Therapeutic Exercise completed Kristy Newell DPT [email or web address], [place], [address], [facility] 11/08/2023 19:27:19 11/08/19 84708: Neuromuscular Re-Education completed Kristy Newell DPT [email or web address], [place], [address], [facility] 11/08/2023 19:27:22 11/08/19 26813: Manual Therapy completed Kristy Newell DPT [email or web address], [place], [address], [facility] 11/08/2023 19:27:39 11/01/19 24 45050: Therapeutic Exercise completed Kristy Newell DPT [email or web address], [place], [address], [facility] 11/01/2023 19:39:35 11/01/19 24 45535: Manual Therapy completed Kristy Newell DPT [email or web address], [place], [address], [facility] 11/01/2023 19:39:34 11/01/19 24 18908: Therapeutic Activities completed Kristy Newell DPT [address], [place], [address], [facility] 11/01/2023 19:40:04 09/08/19 24 13879: Self Care/Home Management Training cancelled Kristy Newell, WEIT [address], [place], [address], [facility] 09/08/2023 09:01:12 09/08/19 96650: Therapeutic Exercise cancelled Kristy Newell, DPT [address], [place], [address], [facility] 09/08/2023 09:01:12 09/08/19 05214: Neuromuscular Re-Education cancelled Kristy Newell, DPT [address], [place], [address], [facility] 09/08/2023 09:01:12 09/08/19 77058: Manual Therapy cancelled Kristy Newell, DPT [address], [place], [address], [facility] 09/08/2023 09:01:12 09/08/19 25167: Therapeutic Activities cancelled Kristy Newell, DPT [address], [place], [address], [facility] 09/08/2023 09:01:12 08/22/19 Oral appliance completed Nicol Llanes [facility] 08/18/2023 11:17:24 08/17/19 44130: Therapeutic Exercise completed Kristy Newell, DPT [address], [place], [address], [facility] 08/17/2023 14:59:39 08/17/19 66965: Neuromuscular Re-Education completed Kristy Newell, DPT [address], [place], [address], [facility] 08/17/2023 14:59:41 08/17/19 24 92416: Manual Therapy completed Kristy Newell, DPT [address], [place], [address], [facility] 08/17/2023 14:59:56 08/03/19 24 51172 - PT Eval High Complexity completed Kristy Newell, DPT [address], [place], [address], [facility] 08/02/2023 14:21:19 08/03/19 24 50947: Therapeutic Exercise completed Kristy Newell, DPT [address], [place], [address], [facility] 08/03/2023 16:01:34 08/03/19 24 93430: Neuromuscular Re-Education completed Kristy Newell, DPT [address], [place], [address], [facility] 08/03/2023 16:04:18 08/03/19 24 40186: Manual Therapy completed Kristy Newell, DPT [address], [place], [address], [facility] 08/03/2023 16:01:37 08/02/[address] TMJ completed Rosie Ibarra [facility] 08/02/2023 13:06:48 03/21/19 23 procedure on tonsils completed Nicol Llanes [facility] 08/01/2023 16:04:19 03/21/19 22 exploratory incision completed Nicol Llanes [facility] 08/01/2023 16:05:43 03/21/19 21 [place] Teeth Extraction completed Nicol Llanes [facility] 08/01/2023 16:04:28 03/21/19 19 cholecystectomy completed Nicol Llanes [facility] 08/01/2023 16:02:51 03/21/19 18 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 completed Nicol Llanes [facility] 08/01/2023 16:03:43 03/21/19 18 excision of ganglion cyst completed Nicol Llanes [facility] 08/01/2023 16:04:08 07/31/19 17 07658 - PT Eval Moderate Complexity completed Flori Brigette [facility] 07/30/2016 11:10:05 07/31/19 17 49203: Therapeutic Exercise completed Flori Machuca [facility] 07/30/2016 10:08:36 07/31/19 17 65756: Therapeutic Activities completed Flori Brigette [facility] 07/30/2016 10:08:36 Imaging Results None recorded. Procedure Notes None recorded. Medical Equipment None Reported. Allergies No known drug allergies Medications Name Sig Start Date Stop Date Status Note LastModified by Organization Details LastModified Time lamotrigine 200 mg tablet TAKE 1 TABLET BY MOUTH ONCE A DAY 07/31 completed Not Available Not Available Not Available trazodone 50 mg tablet TAKE 2 TABLETS BY MOUTH NIGHTLY AT BEDTIME active Not Available Not Available No t Available cetirizine 10 mg tablet TAKE 1 TABLET (10 MG) BY MOUTH ONCE DAILY. 01/29 completed Not Available Not Available Not Available azithromyci n 250 mg tablet 06/29 completed Not Available Not Available Not Available ibuprofen 800 mg tablet TAKE 1 TABLET BY MOUTH 1 HOUR PRIOR TO SURGICAL APPOINTME NT. AFTER SURGERY TAKE 1 TAB EVERY 6-8 HOURS NEEDED FOR DISCOMFOR T 07/31 completed Not Available Not Available Not Available benzonatate 200 mg capsule TAKE 1 CAPSULE BY MOUTH 2 TO 3 TIMES PER DAY NEEDED FOR COUGH. DO NOT BREAK OR CHEW CAPSULE. 07/31 completed Not Available Not Available Not Available ondansetron HCl 4 mg tablet 07/31 completed Not Available Not Available Not Available prednisone 20 mg tablet 06/29 completed Not Available Not Available Not Available sertraline 100 mg tablet TAKE 1 TABLET BY MOUTH DAILY ALONG WITH 25MG AND 50MG TABS FOR TOTAL OF 175 MG DAILY active Not Available Not Available No t Available sumatriptan 50 mg tablet TAKE 0.5 TABLETS (25 MG) BY MOUTH EVERY 2 HOURS IF NEEDED FOR MIGRAINE. GIVE AT MINIMUM 2HRS APART. MAX DOSE 200MG PER 24HRS. active Not Available Not Available No t Available oxycodone 5 mg/5 mL oral solution TAKE 5ML-7ML BY MOUTH EVERY 4 HOURS NEEDED FOR PAIN 07/31 completed Not Available Not Available Not Available metronidazo le 500 mg tablet 07/31 completed Not Available Not Available Not Available Enema Disposable 19 gram-7 gram/118 mL INSERT 133 ML RECTALLY ONE TIME FOR 1 DOSE. FOLLOW PACKAGE DIRECTION S 01/29 completed Not Available Not Available Not Available methotrexat e sodium 25 mg/mL injection solution INJECT 0.8 ML (20 MG) SUBCUTANE OUSLY ONCE WEEKLY (DISCARD VIAL 30 DAYS AFTER FIRST PUNCTURE) active Not Available Not Available No t Available ciprofloxac in 500 mg tablet TAKE 1 TABLET (500 MG) BY MOUTH TWO TIMES DAILY FOR 7 DAYS. 01/29 completed Not Available Not Available Not Available sulfamethox azole 800 mg-trimetho prim 160 mg tablet TAKE ONE TAB BY MOUTH TWICE DAILY FOR 3 DAYS 07/31 completed Not Available Not Available Not Available tramadol 50 mg tablet TAKE 1 TABLET BY MOUTH EVERY 12 HOURS NEEDED 07/31 completed Not Available Not Available Not Available amoxicillin 875 mg tablet TAKE 1 TABLET (875 MG) BY MOUTH TWO TIMES DAILY FOR 5 DAYS. 01/29 completed Not Available Not Available Not Available PreviDent 1.1 % gel USE DIRECTED ON PACKAGING BEGINNING THE DAY AFTER SURGERY 07/31 completed Not Available Not Available Not Available oseltamivir 75 mg capsule 06/29 completed Not Available Not Available Not Available sertraline 25 mg tablet TAKE 1 TABLET BY MOUTH DAILY ALONG WITH 100MG AND 50MG TABLETS FOR A TOTAL OF 175MG DAILY active Not Available Not Available No t Available folic acid 1 mg tablet TAKE 1 TABLET (1 MG) BY MOUTH ONCE DAILY. active Not Available Not Available No t Available dextroamphe tamine-amph etamine ER 10 mg 24hr capsule,ext end release TAKE 1 CAPSULE BY MOUTH EVERY MORNING WITH FOOD 07/31 completed Not Available Not Available Not Available lorazepam 1 mg tablet TAKE 0.5-1 TABLET BY MOUTH TWICE A DAY NEEDED FOR ANXIETY/P ANIC active Not Available Not Available No t Available polyethylen e glycol 3350 17 gram/dose oral powder MIX 1 SCOOP (17 G) IN LIQUID THEN TAKE BY MOUTH ONCE DAILY. 01/29 completed Not Available Not Available Not Available methylpredn isolone 4 mg tablets in a dose pack TAKE DIRECTED STARTING MORNING OF SURGERY 01/29 completed Not Available Not Available Not Available albuterol sulfate HFA 90 mcg/actuati on aerosol inhaler INHALE 2 PUFFS EVERY 4 TO 6 HOURS NEEDED FOR SHORTNESS OF BREATH OR FOR WHEEZE 07/31 completed Not Available Not Available Not Available propranolol 20 mg tablet TAKE 1 TABLET (20 MG) BY MOUTH ONCE DAILY. 07/31 completed Not Available Not Available Not Available ondansetron 4 mg disintegrat ing tablet DISSOLVE ONE TABLET ON THE TONGUE EVERY EIGHT HOURS active Not Available Not Available No t Available cefdinir 300 mg capsule TAKE 1 CAPSULE BY MOUTH TWICE A DAY FOR 7 DAYS 07/31 completed Not Available Not Available Not Available fluticasone propionate 50 mcg/actuati on nasal spray,suspe nsion 1-2 SPRAY INTO EACH NOSTRIL EVERY DAY DIRECTED 07/31 completed Not Available Not Available Not Available sertraline 50 mg tablet TAKE 1 TABLET BY MOUTH DAILY ALONG WITH 25MG AND 100 MG TABLETS FOR A TOTAL OF 175MG DAILY active Not Available Not Available No t Available doxycycline hyclate 100 mg tablet TAKE 1 TABLET (100 MG) BY MOUTH TWO TIMES DAILY FOR 5 DAYS. 01/29 completed Not Available Not Available Not Available ipratropium bromide 21 mcg (0.03 %) nasal spray INHALE 2 SPRAYS INTO AFFECTED NOSTRIL(S ) THREE TIMES DAILY. SPRAY DOSE IN EACH NOSTRIL. 01/29 completed Not Available Not Available Not Available amoxicillin 875 mg-potassiu m clavulanate 125 mg tablet TAKE 1 TABLET BY MOUTH TWICE A DAY FOR 10 DAYS 07/31 completed Not Available Not Available Not Available nicotine 7 mg/24 hr daily transdermal patch APPLY 1 PATCH DAILY TO CLEAN, DRY AREA OF SKIN. ROTATE SITE OF APPLICATI ON 07/31 completed Not Available Not Available Not Available methotrexat e sodium (PF) 25 mg/mL injection solution INJECT 0.5 ML (12.5 MG) SUBCUTANE OUS ONCE WEEKLY FOR 7 DAYS. 01/29 completed Not Available Not Available Not Available Senna Plus 8.6 mg-50 mg tablet TAKE 2 TABLETS BY MOUTH 2 TIMES DAILY IF NEEDED FOR CONSTIPAT ION. 01/29 completed Not Available Not Available Not Available Truvada 200 mg-300 mg tablet 07/31 completed Not Available Not Available Not Available chlorhexidi ne gluconate 0.12 % mouthwash BEGINNING MORNING OF SURGERY RINSE WITH 12 OZ (15 ML) FOR 30 SECONDS AND SPIT AFTER BREAKFAST AND AT BEDTIME. DO NOT EAT OR RINSE AFTER 07/31 completed Not Available Not Available Not Available lamotrigine ER 200 mg tablet,exte nded release 24 hr TAKE 1 TABLET BY MOUTH DAILY active Not Available Not Available No t Available UltiCare 1 mL 25 gauge x 5/8 syringe DIRECTED. USE ONCE A WEEK WITH METHOTREX ATE active Not Available Not Available No t Available iron ER 159 mg (45 mg iron) tablet,exte nded release TAKE 1 TABLET (142 MG) BY MOUTH ONCE DAILY WITH A MEAL. active Not Available Not Available No t Available Tivicay 50 mg tablet 07/31 completed Not Available Not Available Not Available Vitals Date Recorded Body height Body mass index (BMI) Body mass index (BMI) Percentile per age and sex Body weight Heart rate Systolic blood pressure Diastolic blood pressure Provider Name and Address Organization Details Last Updated DateTime 4 170.18 cm 23.5 kg/m2 67 % 86469.8 6 g 85 /min 124 mm[Hg] 85 mm[Hg] Rsoemary Rivera [facility] 4 16:59:44 Date Recorded Body height Body mass index (BMI) Body mass index (BMI) Percentile per age and sex Body weight Heart rate Systolic blood pressure Diastolic blood pressure Provider Name and Address Organization Details Last Updated DateTime 4 170.18 cm 23.5 kg/m2 67 % 10567.8 6 g 79 /min 105 mm[Hg] 64 mm[Hg] Chica Cruz [facility] 4 15:14:41 Date Recorded Body height Heart rate Systolic blood pressure Diastolic blood pressure Provider Name and Address Organization Details Last Updated DateTime 01/30/2024 170.18 cm 78 /min 105 mm[Hg] 68 mm[Hg] [facility] 01/30/2024 15:36:44 Social History Question Answer Notes LastModified by Organizat ion Details LastModified Time Tobacco Smoking Status Never Smoker Not Available [employer] 01/22/2020 03:46:20 What Is Your Level Of Alcohol Consumption? Occasional Information not available 08/01/2023 Auto Related Injury? No [email or web address] Information not available 06/29/2016 What Is Your Level Of Caffeine Consumption? None [id number] Information not available 01/22/2020 How Much Tobacco Do You Chew? None [id number] Information not available 01/22/2020 Are You Currently Employed? No [id number] Information not available 01/22/2020 Currently No [email or web address] Information not available 06/29/2016 What Type Of Diet Are You Following? REGULAR [id number] Information not available 01/22/2020 Education Less Than 8th Grade [employer] - 7th Grade [email or web address] Information not available 07/30/2016 What Is The Highest Grade Or Level Of School You Have Completed Or The Highest Degree You Have Received? 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 With Others [email or web address] Information not available 06/29/2016 Marital Status Single [email or web address] Informatio n not available 06/29/2016 How Often Do You Practice Self-care (deep Breathing, Relaxing, Stretching, Taking Breaks, Monitoring Clenching And Posture)? Once Daily [email or web address] Information not available 06/29/2016 What Number Best Describes Your Pain On Average In The Past Week? (0=no Pain, 10=pain As Bad As You Can Imagine) 3 [email or web address] Information not available 08/01/2023 What Number Best Describes How, During The Past Week, Pain Has Interfered With Your Enjoyment Of Life? (0=does Not Interfere, 10= Completely Interferes) 0 [email or web address] Information not available 08/01/2023 What Number Best Describes How, During The Past Week, Pain Has Interfered With Your General Activity? (0=does Not Interfere, 10=completely Interferes) 0 Information not available 08/01/2023 How Many ER Visits In The Past Year? 0 [email or web address] Information not available 06/29/2016 How Many Surgeries For Your Primary Problem? 0 [email or web address] Information not available 06/29/2016 How Effective Is Your Self Care Problem At Managing Pain? Helps If I Do It [email or web address] Information not available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
--- OUTSIDE RECORDS SUMMARY | 2024-02-08 16:00 | XMS_ITS | Clinical Summary ---
Author Organization [place] Address [address] [place] [address] Care Team Providers Care Shade Cl[employer] Finisher Name Role Phone Noelle Peña MD Primary Care Provider 1987 MarcelaCatalinaElif Unavailable [phone] Allergies No known active allergies Medications OMEPRAZOLE PO Take 40 mg by mouth daily Active Multiple Vitamins-Minera ls (MULTIVITAMIN ADULTS PO) 2 gummies daily. Ac tive Pravastatin Sodium (PRAVACHOL PO) 1 mg three [...] external cream Apply topically as needed Active amphetamine-dex troamphetamine (ADDERALL XR) 10 MG 24 hr capsule TAKE 1 CAPSULE BY MOUTH EVERY MORNING WITH FOOD 2 Active lamoTRIgine (LAMICTAL) 200 MG tablet Take 200 mg by mouth 2 Active LORazepam (ATIVAN) 2 MG tablet Take 2 mg by mouth 2 times daily 2 Active propranolol (INDERAL) 20 MG tablet 1 Active QUEtiapine (SEROQUEL XR) 50 MG TB24 24 hr tablet TAKE 1-2 TABLETS BY MOUTH AT BEDTIME. START WITH TAKING 1 TABLET AT BEDTIME, DEPENDING ON RESPONSE MAY INCREASE TO 2 TABLETS NIGHTLY AFTER 1 1 Active traZODone (DESYREL) 50 MG tablet TAKE 1-2 TABLET BY MOUTH EVERY NIGHT NEEDED START WITH 1 TABLET, MAY INCREASE TO 2 TABLETS DEPENDING ON RESPONSE 2 Active diphenhydrAMINE (BENADRYL) 25 MG tablet Take 1 tablet (25 mg) by mouth every 6 hours as needed for itching or allergies 4 tablet 3 Active Immunizations Name Administration Dates Next Due Influenza (H1N1) 12/04/2019 Social History Tobacco Use Types Packs/Day Years Used Date Smoking Tobacco: Never Smokeless Tobacco: Never Tobacco Cessation:Counseling Given: Not Answered PHQ-2 Answer Date Recorded PHQ-2 Score 0 04/02/2020 Adolescent Education Answer Date Record ed Getting School Help Needed Not on file 12/25 Comments No Sex and Gender Information Value Date Recorded Sex Assigned at Not on file Legal Sex 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 Gender Identity Not on file Sexual Orientation Not on file Occupation Industry Job Start Date Job End Date Student Not on file Not on file Not on file Last Filed Vital Signs Vital Sign Reading Time Taken Comments Blood Pressure 118/63 06/12/2022 5:01 PM CDT Pulse 84 06/12/2022 5:01 PM CDT Temperature 36.6 C (97.9 F) 06/12/2022 2:20 PM CDT Respiratory Rate 18 06/12/2022 2:20 PM CDT [...] 2021 YEARLY PREVENTIVE VISIT 06/01/2022 06/01/2021, 01/17 PHQ-2 (once per calendar year) 2023 04/02/2020 CHLAMYDIA SCREENING 06/13/2023 06/12/2022, 11/05/2021, 06/01/2021 COVID-19 Vaccine ( season) 2023 11/05/2021, 01/31/2021, 11/17/2020 INFLUENZA VACCINE (#1) 2023 , 01/18/2020, 12/04/2019, Additional history exists DTAP/TDAP/TD IMMUNIZATION (7 - Td or Tdap) 11/06/2025 11/07/2015, 10/02/2008, 08/27/2004, Additional history exists RSV VACCINE (1 - 1-dose 75+ series) 2078 HEPATITIS B IMMUNIZATION Completed 004, 2003, 2003 Pneumococcal Vaccine: Pediatrics (0 to 5 Years) and At-Risk Patients (6 to 64 Years) Aged Out 08/27/2004, 2003, 2003, Additional history exists No longer eligible based on patient's age to complete this topic HPV IMMUNIZATION Completed 11/28/2018, 09/16/2017 MENINGITIS IMMUNIZATION [...] [facility] Comment:A negative result by revenue research analyst mediated amplification does not preclude the presence of C. trachomatis infection because results are dependent on proper and adequate collection, absence of inhibitors and sufficient rRNA to be detected. Urine VOIDED URINE SPECIMEN / Unknown Non-blood Collection / Unknown 06/12/2022 6:22 PM CDT 06/12/2022 6:31 PM CDT Maria Fernanda Hager MD LAB - MICRO GENERAL ORDERABLES Final Result [facility] Inf. Diseases Diag. Lab [address] [facility] [place] [address], [facility] [phone] from Last 3 Months or Most Recently Relevant to Health Maintenance [place] Care Teams [employer]ade [employer] Finisher Relationship Specialty Start Date End Date Noelle Peña MD PCP - General Pediatrics 12/02/17 Elif [facility] [address] [place] [address] Gastroenterology 04/09/20
--- OUTSIDE RECORDS SUMMARY | 2024-02-08 16:00 | XMS_ITS | Referral Summary ---
Author Organization [facility] Address [address] [place] [id number] Care Team Providers Care Auto Glass Installer Name Role Phone Noelle Peña MD Primary Care Provider [phone] MarcelaCatalinaElif Unavailable [phone] Allergies No known active allergies Medications OMEPRAZOLE [...] on file Legal Sex Female 4:32 AM [employer] Gender Identity Not on file Sexual Orientation [...] [facility] Comment:A negative result by gate technician mediated amplification does not preclude the presence of C. trachomatis infection because results are dependent on proper and adequate collection, absence of inhibitors and sufficient rRNA to be detected. Urine VOIDED URINE SPECIMEN / Unknown Non-blood Collection / Unknown 06/12/2022 6:22 PM CDT 06/12/2022 6:31 PM CDT Maria Fernanda Hager MD LAB - MICRO GENERAL ORDERABLES Final Result [facility] Inf. Diseases Diag. Lab [address] [facility] [place] [address], [facility] [phone] from Last 3 Months or Most Recently Relevant to Health Maintenance Insurance [facility] [place] [id number] [place] Care Teams Auto Glass Installer Relationship Specialty Start Date End Date Noelle Peña MD PCP - General Pediatrics 12/02/17 El[facility] [place] [facility] [address] [place] [address] Gastroenterology 04/09/20
--- OUTSIDE RECORDS SUMMARY | 2024-02-08 16:00 | XMS_ITS | Patient Health Record ---
Author Organization [facility] Address [address] [facility] [address] [place] [address] Care Team Providers Care Computer Systems Administrator Name Role Phone Noelle Peña MD Primary Care Provider NILTON PONCE CNP, JUDY Unavailable Esther Chirinos CNP Unavailable [phone] Allergies No Known Allergies Reason For Referral No Information Medications Medication SIG (Take, Route, Frequency, Duration) Notes Start Date End Date Status Myrbetriq 25 MG 1 tablet Orally Once a day for 90 days last refill patient needs appointment Active LORazepam Active lamoTRIgine ER 200 MG 1 tablet Orally Once a day for 30 day(s) mood stabilizer Active DULoxetine HCl Activ e Propranolol HCl POTS Acti ve traZODone HCl Active hydrOXYzine HCl prn Acti ve Social History Tobacco Use: Social History Observation Description Date Details (start date - stop date) Never Smoker NA - NA SMOKING STATUS 11Y AND OLDER Question Answer Notes Are you a: Non-Smoker Problems Problem Type SNOMED Code ICD Code Onset Dates Problem Status W/U Status Risk Notes Problem 11199684 Constipation by delayed colonic transit (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) Active confirmed Resolved Problem 79841724 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 confirmed frequency returned after she decreased Detrol to 2mg Problem 94566712 Burning with urination (R30.0) Active confirmed Has increased in frequency since she decreased Detrol to 2mg Plan Of Treatment Pending Test Test Name Order Date Abdomen-any 1 View 05/12/2021 US Renal (FRANCIS) w/pre & post void volumes 05/12/2021 Insurance Providers Payer Name Payer Address Payer Phone Subscriber Number Group Number Insured Name Patient Relationship to Insured Coverage Start Date Coverage End Date [facility] [address] [address] [place] [address] [id number] Clarissa Morales Self - patient is the insured 7 Medical (General) History Medical History History ICD Code Baby Born at: 42 Weight: 8 pounds, 11 oz Problems (for child) During : n one Injuries: Skull fracture, pa tella femoral syndrome, hamstring pulls and foot tendon strains Significant Illnesses: none Immunizations: Yes Syndromes/Chromosomal Problems: none Eyes: N/A Neurologic: N/A Endocrine: N/A Pulmonary: N/A Cardiac: N/A Gastrointestinal: Biliary dyskinesia, Co nstipation Genitourinary: Urgency-frequency syndrom e Infections: N/A Surgical History Surgery Date(Month/Year) Osteochondroma removal from left tibia 1 03/2017 Ganglion cyst removed from left wrist Laparoscopic cholecystectomy 01/10/19
--- OUTSIDE RECORDS SUMMARY | 2024-02-08 16:00 | XMS_ITS | Clinical Summary ---
Author Organization [employer] 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 Name Role Phone Noelle Peña MD Primary Care Provi rosanne HasChandrika caldwell MBBS Unavailable [phone] Allergies No known active allergies Medications Medication Sig Dispensed Refills Start Date End Date Status Adapalene 0.3 % topical gel APPLY PEA SIZED AMOUNT TO FACE NIGHTLY 08/24/2019 Active clindamycin 1% (CLEOCIN-T) 1 % lotion USE EVERY MORNING DIRECTED 10/24/2019 Active ondansetron (ZOFRAN ODT) 8 mg disintegrating tablet PLEASE SEE ATTACHED FOR DETAILED DIRECTIONS 03/05/2020 Active traZODone (DESYREL) 50 mg tablet TAKE 1-2 TABLET BY MOUTH EVERY NIGHT NEEDED START WITH 1 TABLET, MAY INCREASE TO 2 TABLETS DEPENDING ON RESPONSE 05/06/2021 Active lamoTRIgine (LAMICTAL XR) 200 mg Extended-Release tablet 1 tablet Active SUMAtriptan (IMITREX) 50 mg tabletIndications:Mi graine with aura and without status migrainosus, not intractable Take 0.5 Tablets (25 mg) by mouth every 2 hours if needed for Migraine. Give at minimum 2hrs apart. Max Dose: 200mg per 24hrs. 20 Tablet 10/28/2022 Active sertraline (ZOLOFT) 100 mg tablet Take 1 Tablet (100 mg) by mouth once daily. 07/28/2023 Active sertraline (ZOLOFT) 50 mg tablet Take 1 Tablet (50 mg) by mouth every morning. 07/28/2023 Active sertraline (ZOLOFT) 25 mg tablet Take 1 Tablet (25 mg) by mouth every morning. 07/28/2023 Active LORazepam (ATIVAN) 1 mg tablet TAKE 1 TABLET BY MOUTH THREE TIMES A DAY NEEDED FOR ANXIETYPANIC ATTACKS Active ferrous sulfate, 45 mg elemental, 142 mg (45 mg iron) Extended-Release tabletIndications:Ir on deficiency Take 1 Tablet (142 mg) by mouth once daily with a meal. 90 Tablet 3 10/17/2023 Active polyethylene glycoL (MIRALAX) 17 gram/scoop powderIndications:Co nstipation, unspecified constipation type Mix 1 scoop (17 g) in liquid then take by mouth once daily. 510 g 3 12/02/2023 Active iron 159 mg (45 mg iron) TbER TAKE 1 TABLET (142 MG) BY MOUTH ONCE DAILY WITH A MEAL. 12/13/2023 Active folic acid 1 mg tabletIndications:Po st-streptococcal reactive arthritis (HC) Take 1 Tablet (1 mg) by mouth once daily. 90 Tablet 1 01/06/2024 Active methotrexate PF 25 mg/mL injectionIndications :Post-streptococcal reactive arthritis (HC) Inject 0.8 mL (20 mg) subcutaneous once weekly. 4 mL 5 01/06/2024 Active Insulin Syringe-Needle U-100 (B-D Insulin Syringe 1cc/25G) 1 mL 25 gauge x 5/8 syrgIndications:Post -streptococcal reactive arthritis (HC) As directed. Use once a week with methotrexate 100 Each 01/06/2024 Active ipratropium (ATROVENT NASAL) 21 mcg (0.03 %) nasal sprayIndications:Sin usitis, unspecified chronicity, unspecified location Inhale 2 Sprays into affected nostril(s) three times daily. Garland dose in each nostril. 30 mL 01/18/2024 Active cetirizine (ZYRTEC) 10 mg tabletIndications:Si nusitis, unspecified chronicity, unspecified location Take 1 Tablet (10 mg) by mouth once daily. 30 Tablet 01/18/2024 Active amoxicillin 875 mg tabletIndications:Ot her recurrent acute nonsuppurative otitis media of left ear Take 1 Tablet (875 mg) by mouth two times daily for 5 days. 10 Tablet 01/04/2024 4 doxycycline 100 mg tabletIndications:Si nusitis, unspecified chronicity, unspecified location Take 1 Tablet (100 mg) by mouth two times daily for 5 days. 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 High risk medication use 10/06/2023 Recurrent streptococcal tonsillitis 10/28/2022 Tonsillar and adenoid hypertrophy 10/28/2022 Migraine with aura and witho ut status migrainosus, not intractable 10/28/2022 S/P laparoscopy - diagnostic, no endometriosis n oted 12/01/2021 S/P cystoscopy - grossly normal findings 022 Constipation by delayed colonic transit 06/02/19 22 Overactive bladder 06/01/2021 Dysuria 06/01/2021 POTS (postural orthostatic tachycardia syndrome) 06/01/2021 Generalized anxiety disorder 09/25/2018 Mild episode of recurrent major depressive disor rosanne 09/25/2018 Resolved Problems Problem Noted Date Diagnosed Date Resolved Date IUD (intrauterine device) in place 12/01/2021 10/28/2022 Encounter for IUD insertion 12/01/2021 10/28/2022 Encounter for Nexplanon removal 12/01/2021 07/28/2023 Migraine with aura and with status migrainosus, not intractable 11/11/2021 10/28/2022 Eating disorder 11/03/2020 10/28/2022 Ganglion of left wrist 09/05/201801/05 Overview (09/05/2018): Two Adjustment disorder with mix ed anxiety and depressed mood 04/04/2018 09/25/2018 Osteochondroma of left tibia 01/30/2018 04/04/2018 Anxiety 06/24/2017 09/25/2018 Encounters Date Type Department Care Team Description 01/18/2024 1:10 PM CDT Office Visit [place] [facility] [address] [place] [address] Nafisa Garland NP Cough (X 1 week); Ear Problem (Pt prescribed antibiotics for ear infection, returned home from visiting mom, forgot medications at her mom's. Ear symptoms have returned. ) 01/18/2024 Travel 01/06/2024 2:45 PM CDT Telemedicine [facility] [address] [address] Chandrika Ramos MBBS Telehealth (No vitals taken); Follow Up (Post-streptococca l reactive arthritis, Reactive arthritis, unspecified site, Arthralgia, unspecified joint) 01/06/2024 Telephone [facility] [address] [place] [address] Chandrika Ramos MBBS AVS 01/06/2024 Travel 01/04/2024 10:00 AM CDT Office Visit [place] [facility] [address] [place] [place] [address] Pj Barboza MD Throat Problem (sore throat , congestion , ear pain for 3 days ) 01/04/2024 Travel 01/04/2024 Telephone [facility] [address] [place] [address] Chandrika Ramos MBBS Appointment 12/02/2023 4:00 PM CDT - 12/02/2023 11:59 PM CDT Hospital Encounter [facility] [address] [place] [address] Cheyanne Foreman, [employer]PERATIONS LIEUTENANT Abdominal pain, RLQ (right lower quadrant); Abdominal pain, generalized 12/02/2023 2:45 PM CDT Ancillary Procedure [facility] [address] [place] [address] 12/02/2023 2:05 PM CDT Office Visit [facility] [address] [place] [id number] Cheyanne Foreman, [employer]PERATIONS LIEUTENANT Abdominal Pain 12/02/2023 Telephone [facility] [address] [place] [address] Cheyanne Foreman, OPERATIONS LIEUTENANT Results (Needs Results Read) 12/02/2023 Travel 11/08/2023 1:30 PM CDT Orders Only [facility] [address] [place] [address] Laboratory, [facility] 11/08/2023 Travel from Last 3 Months Immunizations Name Administration Dates Next Due COVID-19 vaccine (Pfizer-Bio NTech 30mcg/0.3mL) 12YO+ GALDINO-SUCROSE PF, MDV 11/05/2021 COVID-19 vaccine (Pfizer-Bio NTech 30mcg/0.3mL) PF, MDV 01/31/2021 DTaP-HIB (TriHIBIT) 08/27/2004 [id number] (Pediarix) 2003,2003,0 2003 DTaP-IPV (Kinrix) 10/02/2008 HIB PRP-OMP (PedvaxHIB) 2003,2003 HIB PRP-T (ActHIB,Hiberix) 2003 HPV 9 (Gardasil 9) 11/28/2018,09/16/2017 Hepatitis A (Peds) 10/02/2008,12/21/2006 Influenza A (H1N1), Inactivated 12/04/2019 Influenza A (H1N1), Live Intranasal 01/21/2009 Influenza Virus, Unspecified 02/02/2008, 12/21/2006,03/02/2006,01/12,01/01/2004 Influenza, IIV4 02/16/2021,01/06/2018 Influenza, IIV4 (Age 6-35 Mos) 03/02/2006,2004,01/01/2004 Influenza,CCIIV4 PRESERV FREE 12/21/2006 Influenza,LAIV4 Live Intrana elly (Flumist) 01/18/2020,01/05/2019,02/19/2013,02/06,01/08/2010,02/02/2008 MENINGOCOCCAL VACCINE 2 VIAL 2MO-55YO (MENVEO) 01/18/2020,11/07/2015 MMR 10/02/2008,05/21/2004 Pneumococcal conj 7-Valent (Prevnar 7) 0 08/27/2004,2003,2003,07/24 Tdap 11/07/2015 Varicella Vaccine 10/02/2008,05/21/2004 Family History Medical History Relation Name Comments OCD Mother Anxiety disorder Paternal Aunt Anesthesia Problem No Family History Clotting disorder No Family History Relation Name Status Comments Mother Paternal Aunt Social History Tobacco Use Types Packs/Day Years Used Date Smoking Tobacco: Never Passive Smoke Exposure: Never Smokeless Tobacco: Never Tobacco Cessation:Counseling Given: Not Answered Comments:no exposure Alcohol Use Standard Drinks/Week Comments Yes 0 (1 standard drink = 0.6 oz pur e alcohol) Occ PHQ-2 Answer Date Recorded PHQ-2 TOTAL SCORE 2 07/28/2023 Social Connections Answer Date Recorded Do you often feel lonely or isolated from those around you? 0 07/28/2023 Financial Resource Strain Answer Date R ecorded Difficulty of Paying Living Expenses 3 07/28/2023 Difficulty of Paying Living Expenses Not on file 07/28/2023 Food Insecurity Answer Date Recorded Do you worry your food will run out before you are able to buy more? 1 07/28/2023 Transportation Needs Answer Date Record ed Does lack of transportation keep you from medica l appointments? 1 07/28/2023 Does lack of transportation keep you from work, meetings or getting things that you need? 1 07/28/2023 Housing Stability Answer Date Recorded What is your housing situation today? 1 07/28/2023 Sex and Gender Information Value Date Recorded Sex Assigned at Not on file Gender Identity Not on file Sexual Orientation Not on file Obstetrics History Para Term AB IAB SAB Ectopic Multiple Livin g Live Births 0 0 0 0 0 0 0 0 0 0 0 Last Filed Vital Signs Vital Sign Reading Time Taken Comments Blood Pressure 106/60 01/18/2024 2:18 PM CDT Pulse 103 01/18/2024 2:18 PM CDT Temperature 36.8 C (98.2 F) 01/18/2024 2:18 PM CDT Respiratory Rate 20 01/18/2024 2:18 PM CDT Oxygen Saturation 97% 01/18/2024 2:18 PM CDT Inhaled Oxygen Concentration - - Weight 75.3 kg (165 lb 14.4 oz) 10/10/2023 1:04 PM CDT Height 170.1 cm (5' 6.97) 07/28/2023 1 1:13 AM CDT Body Mass Index - - Plan of Treatment Health Maintenance Due Date Last Done Comments HPV series for age 9-26 (3 - Risk 3-dose series) 03/30/2019 11/28/2018, 09/16/2017 Hepatitis C screening for age 18-79 2021 Well Child Check for age 3-20 06/01/2022 06/01/2021, 01/18/2020, 04/04/2018 COVID-19 vaccine series ( season) 2023 11/05/2021, 01/31/2021, 11/17/2020 Influenza for age 9-49 11/20/2023 , 01/18/2020, 12/04/2019, Additional history exists Chlamydia for age 16-24 07/26/2024 07/27/19 24 ([facility] 06/12/2022 (Verified in Care Everywhere or Patient Record), 11/05/2021, Additional history exists BMI (ht and wt on same day) for age 18+ 07/27/2024 07/28/2023, 10/28/2022, 11/05/2021, Additional history exists Depression screening for age 12+ 07/27/2024 07/28/2023, 07/28/2023, 10/28/2022, Additional history exists Tetanus booster 11/06/2025 11/07/2015 Pneumococcal series for age 6-64 Aged Out 08/27/2004, 2003, 2003, Additional history exists No longer eligible based on patient's age to complete this topic Tdap Completed 11/07/2015 Meningococcal series for age 11-21 Completed 01/18/2020, 11/07/2015 HIV for age 15-65 Completed 10/10/2023 Procedures Procedure Name Priority Date/Time Associated Diagnosis Comments STREP A PCR Routine 01/04/2024 1:21 PM CDT Sore throat COVID/FLU/RSV PANEL Routine 01/04/2024 1 0:45 AM CDT Sore throat THROAT RAPID STREP ONLY CLINIC Routine 01/04/2024 10:45 AM CDT Sore throat CT ABDOMEN PELVIS W Routine 12/02/2023 4 :34 PM CDT Abdominal pain, RLQ (right lower quadrant) Abdominal pain, generalized CBC WITH AUTO DIFFERENTIAL Routine 12/02/2023 3:51 PM CDT Diarrhea, unspecified type Abdominal pain, generalized CBC WITH AUTO DIFFERENTIAL Routine 12/02/2023 3:51 PM CDT Diarrhea, unspecified type Abdominal pain, generalized XR ABDOMEN 2 VIEW FLAT AND UPRIGHT OR DECUBITUS STAT 12/02/2023 2:45 PM CDT Abdominal pain, RLQ (right lower quadrant) Abdominal pain, generalized CBC WITH AUTO DIFFERENTIAL Routine 11/08/2023 1:45 PM CDT Post-streptococcal reactive arthritis (HC) BASIC METABOLIC PANEL Routine 11/08/2023 1:45 PM CDT Post-streptococcal reactive arthritis (HC) CBC WITH AUTO DIFFERENTIAL Routine 11/08/2023 1:45 PM CDT Post-streptococcal reactive arthritis (HC) HEPATIC FUNCTION PANEL Routine 11/08/2023 1:45 PM CDT Post-streptococcal reactive arthritis (HC) ANTI HIV 1/2 Routine 10/10/2023 1:36 PM CDT Leukopenia, unspecified type GC CHLAMYDIA TRACH PROBE Routine 11/05/2021 10:00 AM CDT Pelvic pain from Last 3 Months or Most Recently Relevant to Health Maintenance Results * STREP A PCR [[id number]] (01/04/2024 1:21 PM CDT) [facility] STREPTOCOCCUS GROUP A, REAL TIME PCR, THROAT NOT DETECTED NOT DETECTED [facility] Throat SPECIMEN FROM THROAT / Unknown 01/04/2024 1:21 PM CDT 01/04/2024 1:21 PM CDT Pj Barboza MD MICROBIOLOGY Performing Organization Address City/[facility]/ZIP Co de Phone Number [employer] [facility] [address] [place] [address], [employer] [address] [place] [address] * COVID/FLU/RSV PANEL (01/04/2024 10:45 AM CDT) [facility] INFLUENZA A RNA NOT DETECTED NOT DETECTED [facility] INFLUENZA B RNA NOT DETECTED NOT DETECTED [facility] RSV RNA NOT DETECTED NOT DETECTED [facility] SARS COV2 RNA NOT DETECTED NOT DETECTED [facility] Comment: A Not Detected (negative) test result for this test means that RNA from SARS-CoV-2, influenza A, influenza B and RSV was not present in the specimen above the limit of detection. However, it does not rule out the possibility of infection from SARS-CoV-2, influenza A, influenza B and/or RSV. Laboratory test results should always be considered in the context of clinical observations and epidemiological data in making a final diagnosis and patient management decisions. Methodology: Reverse reagent tender helper polymerase chain reaction (RT-PCR). Swab NASOPHARYNGEAL SWAB / Unknown 01/04/2024 10:45 AM CDT 01/04/2024 11:00 AM CDT Pj Barboza MD MICROBIOLOGY [employer] [facility] [address] [place] [address], [employer] [address] * RAPID STREP [[id number]] - STAT request (01/04/2024 10:45 AM CDT) POC, GROUP A STREP NOT DETECTED NOT DETECTED [facility] ([place] Comment: The [place] [employer] recommends that a throat culture be performed if a rapid group A streptococcus assay yields a negative result. [employer] recommends Streptococcus, Group A culture. Throat SPECIMEN FROM THROAT / Unknown 01/04/2024 10:45 AM CDT 01/04/2024 10:55 AM CDT Pj Barboza MD MICROBIOLOGY [facility] [address] [facility] [place] [address], [facility] [place] [address] [place] [address] * CT ABDOMEN PELVIS W (12/02/2023 4:34 PM CDT) Anatomical Region Laterality Modality Abdomen, Pelvis, AORTA, LIVER, SPLEEN Computed Tomography 12/02/2023 4:34 PM CDT Impressions 12/02/2023 5:41 PM CDT 1. No evidence for appendicitis. 2. Question mild nonspecific colitis involving the proximal to mid ascending colon. Attempts to reach the referring clinician at both provided numbers were unsuccessful. Results will be sent via physician alert. Narrative 12/02/2023 5:41 PM CDT For Patients: As a result of the Cures Act, medical imaging exams and procedure reports are released immediately into your electronic medical record. You may view this report before your referring provider. If you have questions, please contact your health care provider. PHYSICIAN ALERT EXAM: CT ABDOMEN PELVIS W LOCATION: [facility] DATE: 12/02/2023 INDICATION: Abdominal pain. COMPARISON: None. TECHNIQUE: CT scan of the abdomen and pelvis was performed following injection of IV contrast. Multiplanar reformats were obtained. Dose reduction techniques were used. CONTRAST: Omnipaque 350 86ml FINDINGS: LOWER CHEST: Clear visualized lung bases. HEPATOBILIARY: No focal hepatic mass or biliary dilatation. Prior cholecystectomy. PANCREAS: No focal pancreatic mass, peripancreatic inflammation, or pancreatic ductal dilatation. SPLEEN: Normal size. ADRENAL GLANDS: No nodules. KIDNEYS/BLADDER: No suspicious renal mass or hydronephrosis. No urinary bladder wall thickening. BOWEL: Unremarkable appearance of the visualized portions of the distal esophagus, stomach, and duodenum. No dilated loops of small bowel are present to suggest an obstruction. No evidence for appendicitis. There is mild apparent wall thickening of the proximal to mid ascending colon without pneumatosis or extraluminal gas. The remainder of the colon appears unremarkable. LYMPH NODES: No abdominal or pelvic lymphadenopathy is identified by size criteria. VASCULATURE: Normal caliber abdominal aorta. Patent proximal celiac trunk, SMA, and PANCHO. Patent portal, splenic, and mesenteric veins. Patent bilateral renal veins. PELVIC ORGANS: No large pelvic mass. MUSCULOSKELETAL: No aggressive osseous lesion. Procedure Note Mook Reddy MD - 12/02/2023 For Patients: As a result of the Cures Act, medical imagingexams and procedure reports are released immediately into your electronicmedical record. You may view this report before your referring provider.If you have questions, please contact your health care provider. PHYSICIAN ALERT EXAM: CT ABDOMEN PELVIS W LOCATION: [facility] DATE: 12/02/2023 INDICATION: Abdominal pain. COMPARISON: None. TECHNIQUE: CT scan of the abdomen and pelvis was performed followinginjection of IV contrast. Multiplanar reformats were obtained. Dosereduction techniques were used. CONTRAST: Omnipaque 350 86ml FINDINGS: LOWER CHEST: Clear visualized lung bases. HEPATOBILIARY: No focal hepatic mass or biliary dilatation. Priorcholecystectomy. PANCREAS: No focal pancreatic mass, peripancreatic inflammation, orpancreatic ductal dilatation. SPLEEN: Normal size. ADRENAL GLANDS: No nodules. KIDNEYS/BLADDER: No suspicious renal mass or hydronephrosis. No urinarybladder wall thickening. BOWEL: Unremarkable appearance of the visualized portions of the distalesophagus, stomach, and duodenum. No dilated loops of small bowel arepresent to suggest an obstruction. No evidence for appendicitis. There ismild apparent wall thickening of the proximal to mid ascending colonwithout pneumatosis or extraluminal gas. The remainder of the colonappears unremarkable. LYMPH NODES: No abdominal or pelvic lymphadenopathy is identified by sizecriteria. VASCULATURE: Normal caliber abdominal aorta. Patent proximal celiac trunk,SMA, and PANCHO. Patent portal, splenic, and mesenteric veins. Patentbilateral renal veins. PELVIC ORGANS: No large pelvic mass. MUSCULOSKELETAL: No aggressive osseous lesion. IMPRESSION: 1. No evidence for appendicitis. 2. Question mild nonspecific colitis involving the proximal to midascending colon. Attempts to reach the referring clinician at both provided numbers wereunsuccessful. Results will be sent via physician alert. Edward Raheel NogueraForeman [employer]PER[employer]IEUT[employer] CT * CBC WITH AUTO DIFFERENTIAL (12/02/2023 3:51 PM CDT) Only the most recent of2 resultswithin the time period is included. WHITE BLOOD COUNT 4.6 4.5 - 11.0 thou/cu mm 12/02/2023 3:54 PM CDT [facility] RED BLOOD COUNT 4.42 4.00 - 5.20 mil/cu mm 12/02/2023 3:54 PM CDT [facility] HEMOGLOBIN 13.7 12.0 - 16.0 g/dL 12/02/2023 3:54 PM CDT [facility] HEMATOCRIT 41.5 33.0 - 51.0 % 12/02/2023 3:54 PM CDT [facility] MCV 94 80 - 100 fL 12/02/2023 3:54 PM CDT [facility] MCH 31.0 26.0 - 34.0 pg 12/02/2023 3:54 PM CDT [facility] MCHC 33.0 32.0 - 36.0 g/dL 12/02/2023 3:54 PM CDT [facility] RDW 13.6 11.5 - 15.5 % 12/02/2023 3:54 PM CDT [facility] PLATELET COUNT 216 140 - 440 thou/cu mm 12/02/2023 3:54 PM CDT [facility] MPV 10.1 6.5 - 11.0 fL 12/02/2023 3:54 PM CDT [facility] % NEUT 49.5 % 12/02/2023 3:54 PM CDT [facility] % LYMPH 40.4 % 12/02/2023 3:54 PM CDT [facility] % MONO 7.3 % 12/02/2023 3:54 PM CDT [facility] % EOS 2.2 % 12/02/2023 3:54 PM CDT [facility] % BASO 0.6 % 12/02/2023 3:54 PM CDT [facility] ABSOLUTE NEUTROPHILS 2.3 1.7 - 7.0 thou/cu mm 12/02/2023 3:54 PM CDT [facility] ABSOLUTE LYMPHOCYTES 1.9 0.9 - 2.9 thou/cu mm 12/02/2023 3:54 PM CDT [facility] ABSOLUTE MONOCYTES 0.3 <0.9 thou/cu mm 12/02/2023 3:54 PM CDT [facility] ABSOLUTE EOSINOPHILS 0.1 <0.5 thou/cu mm 12/02/2023 3:54 PM CDT [facility] ABSOLUTE BASOPHILS 0.0 <0.3 thou/cu mm 12/02/2023 3:54 PM CDT [facility] Blood BLOOD SPECIMEN / Unknown Venipuncture / Unknown 12/02/2023 3:51 PM CDT 12/02/2023 3:51 PM CDT Cheyanne Foreman NP HEMATOLOGY [facility] [address] [place], [place] [id number] * XR ABDOMEN 2 VIEW FLAT AND UPRIGHT OR DECUBITUS (12/02/2023 2:45 PM CDT) Anatomical Region Laterality Modality Abdomen Digital Radiogra phy 12/02/2023 2:45 PM CDT Impressions 12/02/2023 2:47 PM CDT No free air. Nonobstructive bowel gas pattern. [id number] volume stool scattered in the colon. Large volume ingested material in the stomach. Cholecystectomy clips. Narrative 12/02/2023 2:47 PM CDT For Patients: As a result of the Cures Act, medical imaging exams and procedure reports are released immediately into your electronic medical record. You may view this report before your referring provider. If you have questions, please contact your health care provider. EXAM: XR ABDOMEN 2 VIEW FLAT AND UPRIGHT OR DECUBITUS LOCATION: [facility] DATE: 12/02/2023 INDICATION: Abdominal Pain, Rlq (right Lower Quadrant) Abdominal Pain, Generalized COMPARISON: Abdominal radiographs 10/30/2020 reviewed. Procedure Note Alexis Alcala MD - 12/02/2023 For Patients: As a result of the Cures Act, medical imagingexams and procedure reports are released immediately into your electronicmedical record. You may view this report before your referring provider.If you have questions, please contact your health care provider. EXAM: XR ABDOMEN 2 VIEW FLAT AND UPRIGHT OR DECUBITUS LOCATION: [facility] DATE: 12/02/2023 INDICATION: Abdominal Pain, Rlq (right Lower Quadrant) Abdominal Pain,Generalized COMPARISON: Abdominal radiographs 10/30/2020 reviewed. IMPRESSION: No free air. Nonobstructive bowel gas pattern. [id number]-[id number] volumestool scattered in the colon. Large volume ingested material in thestomach. Cholecystectomy clips. Cheyanne Foreman NP GENERAL IMAGING * HEPATIC FUNCTION PANEL (11/08/2023 1:45 PM CDT) ALBUMIN 4.5 4.0 - 4.9 g/dL 11/08/2023 8:48 PM CDT [facility] PROTEIN,TOTAL 6.7 6.0 - 8.0 g/dL 11/08/2023 8:48 PM CDT [facility] BILIRUBIN,TOTAL 0.4 0.0 - 1.2 mg/dL 11/08/2023 8:48 PM CDT [facility] BILIRUBIN,DIRECT 0.2 0.0 - 0.2 mg/dL 11/08/2023 8:48 PM CDT [facility] BILIRUBIN,INDIRE CT 0.2 0.2 - 0.8 mg/dL 11/08/2023 8:48 PM CDT [facility] ALK PHOSPHATASE 54 35 - 104 IU/L 11/08/2023 8:48 PM CDT [facility] ALT (SGPT) 13 10 - 35 IU/L 11/08/2023 8:48 PM CDT [facility] AST (SGOT) 22 10 - 35 IU/L 11/08/2023 8:48 PM CDT [facility] Blood BLOOD SPECIMEN / Unknown Venipuncture / Unknown 11/08/2023 1:45 PM CDT 11/08/2023 1:45 PM CDT Chandrika GRIDER CHEMISTRY [facility] [address] [place] [address], * BASIC METABOLIC PANEL (11/08/2023 1:45 PM CDT) SODIUM 138 136 - 145 mmol/L 11/08/2023 8:48 PM CDT [facility] POTASSIUM 4.3 3.5 - 5.1 mmol/L 11/08/2023 8:48 PM CDT [facility] CHLORIDE 105 98 - 107 mmol/L 11/08/2023 8:48 PM CDT [facility] CO2,TOTAL 23 22 - 29 mmol/L 11/08/2023 8:48 PM CDT [facility] ANION GAP 10 5 - 18 11/08/2023 8:48 PM CDT [facility] GLUCOSE 84 70 - 99 mg/dL 11/08/2023 8:48 PM CDT [facility] CALCIUM 9.2 8.6 - 10.0 mg/dL 11/08/2023 8:48 PM CDT [facility] BUN 13 6 - 20 mg/dL 11/08/2023 8:48 PM CDT [facility] CREATININE 0.81 0.50 - 0.90 mg/dL 11/08/2023 8:48 PM CDT [facility] BUN/CREAT RATIO 16 10 - 20 8:48 PM CDT [facility] eGFR >90 >90 mL/min/1.7 3m2 11/08/2023 8:48 PM CDT [facility] Comment:As of 2021, eG FR is calculated by the CKD-EPI creatinine equation without race adjustment. eGFR can be influenced by muscle mass, exercise, and diet. The reported eGFR is an estimation only and is only applicable if the renal function is stable. Blood BLOOD SPECIMEN / Unknown Venipuncture / Unknown 11/08/2023 1:45 PM CDT 11/08/2023 1:45 PM CDT Chandrika GRIDER CHEMISTRY Performing Organization Address City/[facility]/ZIP Co de Phone Number [facility] [address] [place] [address], * ANTI HIV 1/2 (10/10/2023 1:36 PM CDT) HIV-1/HIV-2 SCREEN Non-Reacti ve Non-Reacti ve 10/10/2023 8:54 PM CDT [facility] Comment:HIV-1 p24 and HIV-1/ HIV-2 Ab Not Detected. Blood BLOOD SPECIMEN / Unknown Non-Lab Butterfly / Unknown 10/10/2023 1:36 PM CDT 10/10/2023 1:37 PM CDT Zeina Waggoner OPERATIONS [employer]IEUT[employer]NT SEND OUTS Performing Organization Address City/[facility]/ZIP Co de Phone Number [facility] [address] [place] [address], [place] * GC & CHLAMYDIA DNA PCR [[id number]] (11/05/2021 10:00 AM CDT) CHLAMYDIA PROBE Negative 2:34 AM CDT [facility] N GONORRHOEAE PROBE Negative 11/06/2021 2:34 AM CDT [facility] Other VAGINAL SWAB / Unknown Non-Blood / Unknown 11/05/2021 10:00 AM CDT 11/05/2021 10:19 AM CDT Gladis Yang MD MICROBIOLOGY [facility] [address] [place] [address], from Last 3 Months or Most Recently Relevant to Health Maintenance Advance Directives * Full Code (Latest Code Status on File) Date Activated Date Inactivated Comments 12/01/2021 9:51 AM 12/01/2021 4:34 PM Question Answer Comments Code Status Discussion: Reviewed Preferences Care Teams Profile Mill Operator Tape Control Relationship Specialty Start Date End Date Noelle Peña MD [address] [place] [address] PCP - General Pediatric 06/22/17 Chandrika Ramos MBBS [address] [place] [address] Rheumatology 10/07/23
--- OUTSIDE RECORDS SUMMARY | 2024-02-08 16:00 | XMS_ITS | Clinical Summary ---
[facility] Organization [facility] Address [address] [place] [address] Care Team Providers Care Shoe Dresser Name Role Phone Noelle Peña MD Primary Care Provider [phone] Source Comments You are receiving this document as you are listed as the primary care provider,follow-up provider, or the patient has been referred to you for consultation.This is in compliance with the Medicare and[place] EHR Incentive Program,which states Providers who transition their patient to another setting of careor provider of care or refers their patient to another provider of care shouldprovide summary care record for each transition of care or referral. [facility] Allergies No known active allergies Medications Medication Sig Dispensed Refills Start Date End Date Status aluminum chloride (DRYSOL) 20 % external solution Apply topically. 10/25/2017 A ctive cetirizine (ZYRTEC) 10 MG tablet TAKE 0.5 TABLET BY MOUTH TWICE A DAY DIRECTED 6 12/28/2017 Active EPINEPHrine (EPIPEN) 0.3 MG/0.3ML injection INJECT 0.3 MG IM ONCE 0 11/22/2017 Active Norethin Trveor-Eth Estrad-FE (JUNEL) 1-20 MG-MCG tablet Take 1 Tablet by [...] the prescription pain medications (oxycodone, hydrocodone or tramadol.) This may also be safely mixed with [...] NIGHTLY AFTER 1 12/09/2020 Active MICROGESTIN FE .08/17 1.5-30 MG-MCG tablet Take 1 Tablet by mouth daily. 01/01/2021 Active Active Problems Problem Noted Date Diagnosed Date Osteochondroma of left tibia 01/31/2018 Overview (01/31/2018): Added automatically from request for surgery [id number] Cough 02/11/2007 Immunizations Name Administration Dates Next Due [id number] (Pediarix) 2003,2003,0 2003 DTaP-IPV (Kinrix, 4-6 yrs) 10/02/2008 DTaP/Hib 08/27/2004 Flu Vac Preserv Free (3+yrs) 12/21/2006 Flu Vac Preserv Free (6-35 mo) 03/02/2006,2004,01/01/2004 H1n1 Laiv Medimmune 2-49 Yr (Intranasal) 01/21/2009 HepA Ped/Adol (1-18 yrs) 10/02/2008,12/21/2006 Hib (ActHIB) 2003 Hib (PedvaxHIB) 2003,2003 Influenza LAIV (Nasal, 2-49 yrs) 02/19/2013,12/20,02/02/2008 Influenza LAIV3 2-49 years (Flumist) 02/06/2011 MCV4 Menveo 2m.+ (two vial) 11/07/2015 [...] 122 12/23/2021 6:27 PM CDT Temperature 37 C (98.6 F) 12/23/2021 6:27 PM CDT Respiratory Rate 18 12/23/2021 6:27 PM CDT Oxygen Saturation 100% 12/23/2021 6:27 PM CDT Inhaled Oxygen Concentration - - Weight 70.3 kg (155 lb) 02/06/2021 4:49 PM SOIL CHEMIST Height 167.6 cm (5' 6) 02/06/2021 4:49 PM SOIL CHEMIST Body Mass Index 25.02 02/06/2021 4:49 PM SOIL CHEMIST Plan of Treatment Health Maintenance Due Date Last Done Comments Hep C Screening (Preventive Services) 2003 HIV Screening (Preventive Services) 2019 Adult Preventive Visit 2021 Chlamydia 06/13/2023 06/12/2022, 05/20, 11/05/2021, Additional history exists COVID-19 Vaccine ( season) 2023 11/05/2021, 01/31/2021, 11/17/2020 Influenza (#1) 2023 02/16/2021, 12/21, 01/05/2019, Additional history exists DTaP/Tdap/Td (7 - Tdap) 11/06/2025 11/07/19, 10/02/2008, 08/27/2004, Additional history exists Zoster/Shingles (1 [...] Completed 11/28/2018, 09/16/2017 MCV4 Completed 01/18/2020, 11/07/2015 RSV Aged Out No longer eligi ble based on patient's age to complete this topic Advance Directives * Full Code (Latest Code Status on File) Date Activated Date Inactivated Comments 02/01/2018 11:28 AM 02/01/2018 4:25 PM Care Teams Shoe Dresser Relationship Specialty Start Date End Date Noelle Peña MD [address] [place] [address] PCP - General Pediatric Medicine 02/01/18
== END 2024-02-08 15:57 | disposition home or self-care (01) ==
LOC: CT 15:57
PROVIDERS: PCP Pediatrics; Visit Provider Family Medicine
DX: J32.9 Chronic sinusitis, unspecified (principal)
CPT/HCPCS: 70486

== ENCOUNTER 2024-09-12 20:03 | Emergency (ER) | payer BC, SELFPAY ==
--- OUTSIDE RECORDS SUMMARY | 2024-09-12 20:06 | XMS_ITS | Encounter Summary ---
Author Organization [facility] Address [address] [address] Care Team Providers Care Mold Machine Operator Name Role Phone Noelle Peña MD Primary Care Provider [phone] Encounter Details Date Type Department Care Team (Late st Contact Info) Description 06/08/2024 Results Follow-Up [place] [address] [facility] [address] [place] [address] Willian Vela MBBS [address] [place] [address] Social History Tobacco Use Types Packs/Day Years Used Date Smoking Tobacco: Never Smokeless Tobacco: Never Alcohol Use Standard Drinks/Week Comments Yes 0 (1 standard drink = 0.6 oz pur e alcohol) Comments No Sex and Gender Information Value Date Recorded Sex Assigned at Not on file Legal Sex Female 5:35 AM CDT Gender Identity Not on file Sexual Orientation Not on file documented as of this encounter Plan of Treatment Not on file documented as of this encounter Visit Diagnoses Not on filedocumented in this encounter Care Teams Mold Machine Operator Relationship Specialty Start Date End Date Noelle Peña MD [address] [place] [address] PCP - General Pediatric Medicine 02/01/18 documented as of this encounter
--- OUTSIDE RECORDS SUMMARY | 2024-09-12 20:06 | XMS_ITS | Clinical Summary ---
Author Organization [facility] Address [address] [place] [address] Care Team Providers Care Dietary Tech Name Role Phone Noelle Peña MD Primary Care Provider [phone] Source Comments You are receiving this document as you are listed as the primary care provider,follow-up provider, or the patient has been referred to you for consultation.This is in compliance with the Medicare and[facility] EHR Incentive Program,which states Providers who transition their patient to another setting of careor provider of care or refers their patient to another provider of care shouldprovide summary care record for each transition of care or referral. [facility] Allergies No known active allergies Medications EPINEPHrine (EPIPEN) 0.3 MG/0.3ML injection INJECT 0.3 MG IM ONCE 0 11/23/19 18 Active acetaminophen (TYLENOL) 500 MG tablet Take 1 Tablet by mouth every 4 hours as needed for Pain (Mild Pain). Maximum acetaminophen dose is 4000 mg in 24 hours 100 Tablet 11 09/16/19 19 Active ibuprofen (MOTRIN) 200 MG tablet Take 2 Tablets by mouth every 6 hours as needed for Pain (Mild Pain). This may be safely mixed with the prescription pain medications (oxycodone, hydrocodone or tramadol.) This may also be safely mixed with acetaminophen. 100 Tablet 09/16/19 19 Active clindamycin (CLEOCIN T) 1 % lotion USE EVERY MORNING DIRECTED 08/24/19 20 Active adapalene (DIFFERIN) 0.3 % gel APPLY PEA SIZED AMOUNT TO FACE NIGHTLY 08/24/19 Active mupirocin calcium (BACTROBAN) 2 % cream Apply topically three times a day. 15 g 02/06/20 Active Additional Information Patient not taking.Reported on 12/23/2021 ondansetron (ZOFRAN-ODT) 8 MG disintegrating tablet PLEASE SEE ATTACHED FOR DETAILED DIRECTIONS 03/05/20 Active ketoconazole (NIZORAL) 2 % shampoo 07/01/19 Active propranolol (INDERAL) 20 MG tablet 07/16/19 Active LORazepam (ATIVAN) 0.5 MG tablet TAKE 1-2 TABLET BY MOUTH EVERY SIX TO EIGHT HOURS NEEDED FOR PANIC ATTACKS. 02/05/20 Active GNP IRON 45 MG tablet Take 1 Tablet (143 mg) by mouth daily. 05/03/19 Active folic acid 1 MG tablet TAKE 1 TABLET (1 MG) BY MOUTH ONCE DAILY. Active Methotrexate Sodium (METHOTREXATE PF) 50 MG/2ML injection Inject 20 mg subcutaneously once every week. 05/30/19 Active sertraline (ZOLOFT) 100 MG tablet TAKE 1 TABLET BY MOUTH DAILY ALONG WITH 25MG AND 50MG TABS FOR TOTAL OF 175 MG DAILY Active sertraline (ZOLOFT) 50 MG tablet TAKE 1 TABLET BY MOUTH DAILY ALONG WITH 25MG AND 100 MG TABLETS FOR A TOTAL OF 175MG DAILY Active sertraline (ZOLOFT) 25 MG tablet TAKE 1 TABLET BY MOUTH DAILY ALONG WITH 100MG AND 50MG TABLETS FOR A TOTAL OF 175MG DAILY Active SUMAtriptan (IMITREX) 50 MG tablet TAKE 0.5 TABLETS (25 MG) BY MOUTH EVERY 2 HOURS IF NEEDED FOR MIGRAINE. GIVE AT MINIMUM 2HRS APART. MAX DOSE 200MG PER 24HRS. Active traZODone (DESYREL) 50 MG tablet TAKE 2 TABLETS BY MOUTH NIGHTLY AT BEDTIME Active lamoTRIgine ER 200 MG Take 1 Tablet (200 mg) by mouth daily. 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 Episodic migraine 08/01/2023 Migraine with aura and with status migrainosus, not intractable 11/11/2021 Constipation by delayed colonic transit 06/02/19 POTS (postural orthostatic tachycardia syndrome) 06/01/2021 Gastroesophageal reflux disease without esophagi tis 12/14/2018 Generalized anxiety disorder 09/25/2018 Mild episode of recurrent major depressive disor rosanne 09/25/2018 Osteochondroma of left tibia 01/31/2018 Overview (01/31/2018): Added automatically from request for surgery [id number] Cough 02/11/2007 Immunizations Immunization Administration Dates Next Due [id number]-VQH (Pediarix) 2003,2003,0 2003 DTaP-IPV (Kinrix, 4-6 yrs) [...] Sign Reading Time Taken Comments Blood Pressure 101/67 06/06/2024 8:18 AM CDT Pulse 79 06/06/2024 8:18 AM CDT Temperature 37.2 C (98.9 F) 06/06/2024 8:18 AM CDT Respiratory Rate 16 06/06/2024 8:18 AM CDT Oxygen Saturation 100% 06/06/2024 8:18 AM CDT Inhaled Oxygen Concentration - - Weight 70.3 kg (155 lb) 02/06/2021 4:49 PM WEB SIZER Height 167.6 cm (5' 6) 02/06/2021 4:49 PM WEB SIZER Body Mass Index 25.02 02/06/2021 4:49 PM WEB SIZER Plan of Treatment Health Maintenance Due Date Last Done Comments Cervical Cancer Screening Due 2003 Hep C Screening (Preventive Services) 2003 MenB Immunization Discussion 2003 Adult Preventive Visit 2021 Chlamydia 06/13/2023 06/12/2022, 05/20, 11/05/2021, Additional history exists COVID-19 Vaccine ( season) 2023 11/05/2021, 01/31/2021, 11/17/2020 DTaP/Tdap/Td Vaccine (7 - Tdap) 11/06/2025 11/07/2015, 10/02/2008, 08/27/2004, Additional history exists Zoster/Shingles Vaccine (1 of 2) 2053 HepB Vaccine Completed 2003, 03/2003, 2003 Hib Vaccine Completed 08/27/2004, 09/2003, 2003, Additional history exists Pneumococcal Vaccine Aged Out 08/27/2004, 2003, 2003, Additional history exists No longer eligible based on patient's age to complete this topic HepA Vaccine Completed 10/02/2008, 12/21/2006 IPV (Polio) Vaccine Completed 10/02/2008, 2003, 2003, Additional history exists Varicella Vaccine Completed 10/02/2008, 05/21/2004 HPV Vaccine Completed 11/28/2018, 09/16/2017 MCV4 Vaccine Completed 01/18/2020, 11/07/2015 HIV Screening (Preventive Services) Completed 10/10/2023 Influenza Vaccine Completed 01/18/2024, , 01/18/2020, Additional history exists Insurance BCBS OUT OF [place] [id number] Advance Directives * Full Code (Latest Code Status on File) Date Activated Date Inactivated Comments 02/01/2018 11:28 AM 02/01/2018 4:25 PM Care Teams Dietary Tech Relationship Specialty Start Date End Date Noelle Peña MD [address] [place] [address] PCP - General Pediatric Medicine 02/01/18
--- OUTSIDE RECORDS SUMMARY | 2024-09-12 20:06 | XMS_ITS | Clinical Summary ---
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 Gender Identity Not on file Sexual Orientation [...] REVIEW OF HM ORDERS 2003 LIPID 2003 MENINGITIS B VACCINE (1 of 2 - Standard) 2019 HEPATITIS C SCREENING 2021 YEARLY PREVENTIVE VISIT 06/01/2022 06/01/2021, 01/17 CHLAMYDIA SCREENING 06/13/2023 06/12/2022, 11/05/2021, 06/01/2021 COVID-19 VACCINE ( - season) 2023 11/05/2021, 01/31/2021, 11/17/2020 PHQ-2 (once per calendar year) 2024 04/02/2020 PAP 2024 INFLUENZA VACCINE (Season Ended) 2024 02/16/2021, 01/18/2020, 12/04/2019, Additional history exists DTAP/TDAP/TD VACCINE (7 - Td or Tdap) 11/06/2025 11/07/2015, 10/02/2008, 08/27/2004, Additional history exists ZOSTER VACCINE (1 of 2) 2053 HEPATITIS B VACCINE Completed 2003, 2003, 2003 PNEUMOCOCCAL VACCINE: PEDIATRICS (0 to 5 YEARS) AND AT-RISK PATIENTS (6 to 49 YEARS) Aged Out 08/27/2004, 2003, 2003, Additional history exists No longer eligible based on patient's age to complete this topic HPV VACCINE Completed 11/28/2018, 09/16/2017 MENINGITIS VACCINE Completed 01/18/2020, 11/07/2015 HIV SCREENING Completed 10/10/2023 Procedures Procedure Name Priority Date/Time Associated Diagnosis Comments CHLAMYDIA TRACHOMATIS PCR STAT 06/12/2022 6:22 PM CDT from Last 3 Months or Most Recently Relevant to Health Maintenance Results * Chlamydia trachomatis PCR (06/12/2022 6:22 PM CDT) Chlamydia trachomatis Negative Negative 06/13/2022 12:20 PM CDT [facility] Comment:A negative result by titrator mediated amplification does not preclude the presence of C. trachomatis infection because results are dependent on proper and adequate collection, absence of inhibitors and sufficient rRNA to be detected. Urine VOIDED URINE SPECIMEN / Unknown Non-blood Collection / Unknown 06/12/2022 6:22 PM CDT 06/12/2022 6:31 PM CDT Maria Fernanda Hager MD LAB - MICRO GENERAL ORDERABLES Final Result [facility] Inf. Diseases Diag. Lab [address] [facility], [address] [place] [address], [facility] [phone] from Last 3 Months or Most Recently Relevant to Health Maintenance [place] Care Teams Shoe Lay Out Planner Relationship Specialty Start Date End Date Noelle Peña MD PCP - General Pediatrics 12/02/17 Elif Medrano [facility] [address] [place] [address] Gastroenterology 04/09/20
--- OUTSIDE RECORDS SUMMARY | 2024-09-12 20:06 | XMS_ITS | Encounter Summary ---
Author Organization [facility] Address [address] [place] [address] Care Team Providers Care Mine Safety Manager Name Role Phone Noelle Peña MD Primary Care Provider [phone] Elif Medrano Unavailable [phone] Serena Castañeda MD Unavailable [phone] Serena Castañeda MD Unavailable [phone] Encounter Details Date Type Department Care Team (Late st Contact Info) Description 11/21/2021 Orders Only [facility] Sched[facility] [address] [place] [address] Demetris Green MD [address] [place] [address] Suspected COVID-19 virus infection Social History Tobacco Use Types Packs/Day Years Used Date Smoking Tobacco: Never Smokeless Tobacco: Never PHQ-2 Answer Date Recorded PHQ-2 Score 0 04/02/2020 Comments Unknown Sex and Gender Information Value Date Recorded Sex Assigned at Not on file Legal Sex Female 4:32 AM PLANT AND MACHINERY VALUER Gender Identity Not on file Sexual Orientation Not on file documented as of this encounter Plan of Treatment Not on file documented as of this encounter Visit Diagnoses Diagnosis Suspected COVID-19 virus infection documented in this encounter Additional Health Concerns Infection Onset Date Last Indicated Resolved Time Influenza 02/07/2022 02/07/2022 02/14/2022 11:3 9 PM PLANT AND MACHINERY VALUER Rule Out COVID-19 02/27/2022 02/27/2022 02/27/2022 8:56 PM PLANT AND MACHINERY VALUER documented as of this encounter Care Teams Mine Safety Manager Relationship Specialty Start Date End Date Noelle Peña MD PCP - General Pediatrics 12/02/17 Elif Medrano [place] [facility] [address] [place] [address] Gastroenterology 04/09/20 Serena Castañeda MD [address] [place] [address] Assigned PCP 03/20/20 03/05/22 Serena Castañeda MD [address] [place] [id number] Assigned PCP 05/15/22 04/13/23 documented as of this encounter
--- OUTSIDE RECORDS SUMMARY | 2024-09-12 20:06 | XMS_ITS | Clinical Summary ---
Author Organization [employer] [facility] Address [address] [place] [address] Care Team Providers Care Black Top Spreader Machine Operator Name Role Phone Noelle Peña MD Primary Care Provi rosanne Chandrika Ramos MBBS Unavailable [phone] Allergies No known active allergies Medications Adapalene 0.3 % topical gel APPLY PEA SIZED AMOUNT TO FACE NIGHTLY Active clindamycin 1% (CLEOCIN-T) 1 % lotion USE EVERY MORNING DIRECTED Active ondansetron (ZOFRAN ODT) 8 mg disintegrating tablet PLEASE SEE ATTACHED FOR DETAILED DIRECTIONS Active traZODone (DESYREL) 50 mg tablet TAKE 1-2 TABLET BY MOUTH EVERY NIGHT NEEDED START WITH 1 TABLET, MAY INCREASE TO 2 TABLETS DEPENDING ON RESPONSE 022 Active lamoTRIgine (LAMICTAL XR) 200 mg Extended-Release tablet 1 tablet Active SUMAtriptan (IMITREX) 50 mg tabletIndications :Migraine with aura and without status migrainosus, not intractable Take 0.5 Tablets (25 mg) by mouth every 2 hours if needed for Migraine. Give at minimum 2hrs apart. Max Dose: 200mg per 24hrs. 20 Tablet 023 Active sertraline (ZOLOFT) 100 mg tablet Take 1 Tablet (100 mg) by mouth once daily. 05/09/2 024 Active sertraline (ZOLOFT) 50 mg tablet Take 1 Tablet (50 mg) by mouth every morning. Active sertraline (ZOLOFT) 25 mg tablet Take 1 Tablet (25 mg) by mouth every morning. Active LORazepam (ATIVAN) 1 mg tablet TAKE 1 TABLET BY MOUTH THREE TIMES A DAY NEEDED FOR ANXIETYPANIC ATTACKS Active ferrous sulfate, 45 mg elemental, 142 mg (45 mg iron) Extended-Release tabletIndications :Iron deficiency Take 1 Tablet (142 mg) by mouth once daily with a meal. 90 Tablet 3 Active polyethylene glycoL (MIRALAX) 17 gram/scoop powderIndications :Constipation, unspecified constipation type Mix 1 scoop (17 g) in liquid then take by mouth once daily. 510 g 3 Active iron 159 mg (45 mg iron) TbER TAKE 1 TABLET (142 MG) BY MOUTH ONCE DAILY WITH A MEAL. Active methotrexate PF 25 mg/mL injectionIndicati ons:Post-streptoc occal reactive arthritis (HC) Inject 0.8 mL (20 mg) subcutaneous once weekly. 4 mL 5 Active Insulin Syringe-Needle U-100 (B-D Insulin Syringe 1cc/25G) 1 mL 25 gauge x 5/8 syrgIndications:P ost-streptococcal reactive arthritis (HC) As directed. Use once a week with methotrexate 100 Each Active ipratropium (ATROVENT NASAL) 21 mcg (0.03 %) nasal sprayIndications: Sinusitis, unspecified chronicity, unspecified location Inhale 2 Sprays into affected nostril(s) three times daily. [place] dose in each nostril. 30 mL Active cetirizine (ZYRTEC) 10 mg tabletIndications :Sinusitis, unspecified chronicity, unspecified location Take 1 Tablet (10 mg) by mouth once daily. 30 Tablet Active folic acid 1 mg tabletIndications :Post-streptococc al reactive arthritis (HC) TAKE 1 TABLET (1 MG) BY MOUTH ONCE DAILY. 30 Tablet 3 025 Active folic acid 1 mg tabletIndications :Post-streptococc al reactive arthritis (HC) Take 1 Tablet (1 mg) by mouth once daily. 90 Tablet 1 024 2024 Discontinued ciprofloxacin-dex AMETHasone otic suspensionIndicat ions:Acute swimmer's ear of left side Place 4 Drops into left ear two times daily for 7 days. 6 mL 025 2024 Hospital, Clinic, or Other Facility Administered Medication [...] Encounters Date Type Department Care Team Description 09/04/2024 Refill [facility] [address] [place] [address] Chandrika Ramos MBBS Refill Request (Folic Acid) 08/28/2024 3:30 PM CDT Ancillary Procedure [facility] [address] [facility] [address] [place] [address] 08/28/2024 3:00 PM CDT Office Visit [facility] [address] [facility] [address] [place] [address] Mk Lovett PA Ankle Pain/problem (Right ankle. X 2 months.) 08/28/2024 Telephone [facility] [address] [facility] [address] [place] [id number] Clarissa Chandra Appointment 08/28/2024 Travel 07/18/2024 12:40 PM CDT Office Visit [facility] [address] [address] Jerilyn Wiley MD Migraine 07/18/2024 Travel 07/18/2024 Nurse Triage [facility] [address] [place] [address] Noelle Peña MD Weak 07/03/2024 11:55 AM CDT Office Visit [facility] [address] [place] [address] Sesar Davenport MD Urinary Problem 07/03/2024 Travel 06/21/2024 Telephone [facility] [address] [place] [address] Chandrika Ramos MBBS Questions from Last 3 Months Immunizations Immunization Administration Dates Next Due COVID-19 vaccine (Pfizer-Bio NTech 30mcg/0.3mL) 12YO+ GALDINO-SUCROSE PF, MDV 11/05/2021 COVID-19 vaccine (Pfizer-Bio NTech 30mcg/0.3mL) PF, MDV 01/31/2021 DTaP-HIB (TriHIBIT) 08/27/2004 NRmA-[id number] (Pediarix) 2003,2003,0 2003 DTaP-IPV (Kinrix) 10/02/2008 HIB PRP-OMP (PedvaxHIB) 2003,2003 HIB PRP-T (ActHIB,Hiberix) 2003 HPV 9 (Gardasil 9) 11/28/2018,09/16/2017 Hepatitis A (Peds) 10/02/2008,12/21/2006 INFLUENZA, IIV3 PF (AGE >= 6 MO) 01/18/2024 Influenza A (H1N1), Inactivated 12/04/2019 Influenza A [...] is your housing situation today? 1 07/28/2023 Utilities Answer Date Recorded Do you have trouble paying f or utilities (for example, heat, electricity, water, phone)? 1 07/28/2023 Comments No Sex and Gender Information Value Date Recorded Sex Assigned at Not on file Legal Sex Female 11:33 AM CDT Gender Identity Not on file Sexual Orientation Not on file Obstetrics History Para Term AB IAB SAB Ectopic Multiple Livin g Live Births 0 0 0 0 0 0 0 0 0 0 0 Last Filed Vital Signs Vital Sign Reading Time Taken Comments Blood Pressure 111/58 08/28/2024 2:58 PM CDT Pulse 83 08/28/2024 2:58 PM CDT Temperature 36.7 C (98 F) 08/28/2024 2:58 PM CDT Respiratory Rate 17 08/28/2024 2:58 PM CDT Oxygen Saturation 97% 08/28/2024 2:58 PM CDT Inhaled Oxygen Concentration - - Weight 77.1 kg (170 lb) 08/28/2024 2:58 PM CDT Height 170.1 cm (5' 6.97) 07/28/2023 11:13 AM C DT Body Mass Index - - Plan of Treatment Health Maintenance Due Date Last Done Comments HPV series for age 9-26 (3 - Risk 3-dose series) 03/30/2019 11/28/2018, 09/16/2017 Hepatitis C screening for ag e 18-79 2021 Pneumococcal series for age 6-49 (1 of 2 - PCV) 2022 08/27/2004, 2003, 2003, Additional history exists COVID-19 vaccine series ( - 2023- season) 2023 11/05/2021, 01/31/2021, 11/17/2020 Pap test for age 21-65 2024 Chlamydia for age 16-24 07/26/2024 07/27/19 24 (Completed outside of [facility]), 06/12/2022 (Verified in Care Everywhere or Patient Record), 11/05/2021, Additional history exists BMI (ht and wt on same day) for age 18+ 07/27/2024 07/28/2023, 10/28/2022, 11/05/2021, Additional history exists Depression screening for age 12+ 07/27/2024 07/28/2023, 07/28/2023, 10/28/2022, Additional history exists Tetanus booster 11/06/2025 11/07/2015 Hepatitis B series for 19+ Completed 11/25, 2003, 2003 Tdap Completed 11/07/2015 Meningococcal series for age 11-21 Completed 2019, 11/07/2015 HIV for age 15-65 Completed 10/10/2023 Influenza Vaccine Completed 01/18/2024, , 01/18/2020, Additional history exists Procedures Procedure Name Priority Date/Time Associated Diagnosis Comments XR ANKLE 3 VIEWS RIGHT STAT 08/28/2024 3:31 PM CDT Acute right ankle pain STREP A PCR Routine 07/18/2024 2:51 PM CDT Myalgia Sore neck THROAT RAPID STREP ONLY CLINIC Routine 07/18/2024 1:35 PM CDT Myalgia HEPATIC FUNCTION PANEL Routine 07/18/2024 1:34 PM CDT Post-streptococcal reactive arthritis (HC) BASIC METABOLIC PANEL Routine 07/18/2024 1:34 PM CDT Post-streptococcal reactive arthritis (HC) COVID/FLU/RSV PANEL Routine 07/18/2024 1 :33 PM CDT Myalgia CBC WITH AUTO DIFFERENTIAL Routine 07/18/2024 1:33 PM CDT Post-streptococcal reactive arthritis (HC) UA W/ SEDIMENT EXAM REFLEXED PER CRITERIA STAT 07/03/2024 11:56 AM CDT Dysuria URINE CULTURE Routine 07/03/2024 11:53 AM CDT Dysuria ANTI HIV 1/2 Routine 10/10/2023 1:36 PM CDT Leukopenia, unspecified type GC CHLAMYDIA TRACH PROBE Routine 11/05/2021 10:00 AM CDT Pelvic pain from Last 3 Months or Most Recently Relevant to Health Maintenance Results * XR ANKLE 3 VIEWS RIGHT (08/28/2024 3:31 PM CDT) Anatomical Region Laterality Modality ANKLES, ANKLE R Digital Radiogra phy 08/28/2024 3:49 PM CDT Impressions 08/28/2024 3:49 PM CDT 1. No acute osseous injuries or abnormalities are noted. Dictated by: Brandon Suresh MD @ 08/28/2024 15:49:55 (Electronically Signed) Narrative 08/28/2024 3:49 PM CDT For Patients: As a result of the Century Cures Act, medical imaging exams and procedure reports are released immediately into your electronic medical record. You may view this report before your referring provider. If you have questions, please contact your health care provider. INDICATION: Acute right ankle pain, right ankle pain TECHNIQUE: Ankle radiograph 3 views right COMPARISON: None FINDINGS: Bone: No acute fractures or aggressive bone lesions are identified. Joint: The ankle mortise joint and the visualized hindfoot joints are unremarkable in appearance. No significant ankle effusion is seen. Soft tissue: The Kager fat pad and the Achilles` tendon are normal in appearance. No radiopaque foreign bodies are seen. Procedure Note Brandon Suresh MD - 08/28/2024 For Patients: As a result of the Century Cures Act, medical imagingexams and procedure reports are released immediately into your electronicmedical record. You may view this report before your referring provider.If you have questions, please contact your health care provider. INDICATION: Acute right ankle pain, right ankle pain TECHNIQUE: Ankle radiograph 3 views right COMPARISON: None FINDINGS: Bone: No acute fractures or aggressive bone lesions are identified. Joint: The ankle mortise joint and the visualized hindfoot joints areunremarkable in appearance. No significant ankle effusion is seen. Soft tissue: The Kager fat pad and the Achilles` tendon are normal inappearance. No radiopaque foreign bodies are seen. IMPRESSION: 1. No acute osseous injuries or abnormalities are noted. Dictated by: Brandon Suresh MD @ 08/28/2024 15:49:55 (Electronically Signed) us [facility] Final Resul t * STREP A PCR (07/18/2024 2:51 PM CDT) Pathologist [facility] GROUP A STREP Negative 07/18/2024 9:59 PM CDT [facility]AT[facility] Throat SPECIMEN FROM THROAT / Unknown Non-Blood / Unknown 07/18/2024 2:51 PM CDT 07/18/2024 2:51 PM CDT us Jerilyn Wiley MD MICROBIOLOGY Final Res ult [facility] [address] [place] [address], * POCT Throat Rapid Strep (07/18/2024 1:35 PM CDT) POC, GROUP A STREP NOT DETECTED NOT DETECTED [facility] Comment: The [place] [employer] recommends that a throat culture be performed if a rapid group A streptococcus assay yields a negative result. [facility] recommends Streptococcus, Group A culture. Throat SPECIMEN FROM THROAT / Unknown 07/18/2024 1:35 PM CDT 07/18/2024 1:36 PM CDT Jerilyn Wiley MD MICROBIOLOGY Final Res ult [facility] [address] [place] [address], [facility] [address] [place] [address] * HEPATIC FUNCTION PANEL (07/18/2024 1:34 PM CDT) Pathologist [facility] PROTEIN, TOTAL 6.9 6.1 - 8.1 g/dL [facility] ALBUMIN 4.7 3.6 - 5.1 g/dL [facility] GLOBULIN 2.2 1.9 - 3.7 g/dL (calc) [facility] ALBUMIN/GLOBULIN RATIO 2.1 1.0 - 2.5 (calc) [facility] BILIRUBIN, TOTAL 0.5 0.2 - 1.2 mg/dL [facility] BILIRUBIN, DIRECT 0.1 < OR = 0.2 mg/dL [facility] BILIRUBIN, INDIRECT 0.4 0.2 - 1.2 mg/dL (calc) [facility] ALKALINE PHOSPHATASE 60 31 - 125 U/L [facility] AST 18 10 - 30 U/L [facility] ALT 17 6 - 29 U/L [facility] Blood BLOOD SPECIMEN / Unknown 07/18/2024 1:34 PM CDT 07/18/2024 1:37 PM CDT Narrative [facility] - 07/19/2024 4:17 AM CDT FASTING:NO FASTING: NO Chandrika GRIDER CHEMISTRY Final Result [facility] [address] [place] [address], [place] [phone] [facility] [address] [place] [address] * (ABNORMAL) BASIC METABOLIC PANEL (07/18/2024 1:34 PM CDT) Pathologist [facility] GLUCOSE 87 65 - 139 mg/dL [facility] Comment: Non-fasting reference interval UREA NITROGEN (BUN) 19 7 - 25 mg/dL [facility] CREATININE 0.99(H) 0.50 - 0.96 mg/dL [facility] EGFR 83 > OR = 60 mL/min/1.7 3m2 [facility] BUN/CREATININE RATIO 19 6 - 22 (calc) [facility] SODIUM 139 135 - 146 mmol/L [facility] POTASSIUM 4.3 3.5 - 5.3 mmol/L [facility] CHLORIDE 106 98 - 110 mmol/L [facility] CARBON DIOXIDE 25 20 - 32 mmol/L [facility] ELECTROLYTE BALANCE 8 7 - 17 mmol/L (calc) [facility] CALCIUM 9.3 8.6 - 10.2 mg/dL [facility] Blood BLOOD SPECIMEN / Unknown 07/18/2024 1:34 PM CDT 07/18/2024 1:37 PM CDT Narrative [facility] - 07/19/2024 4:17 AM CDT FASTING:NO FASTING: NO us Chandrika GRIDER CHEMISTRY Final Result [facility] [address] [place] [address], [facility] [address] [place] [address] * COVID/FLU/RSV PANEL (07/18/2024 1:33 PM CDT) [facility] COVID 19 [facility] MOLECULAR Negative Negative 07/19/2024 12:30 AM CDT [facility] INFLUENZA A PCR Negative 12:30 AM CDT [facility] INFLUENZA B PCR Negative 12:30 AM CDT [facility] TRAL [facility] Respiratory Syncytial Virus Negative 07/19/2024 12:30 AM CDT [facility] TRA LABORATORY Swab NASOPHARYNGEAL SWAB / Unknown Non-Blood / Unknown 07/18/2024 1:33 PM CDT 07/18/2024 1:33 PM CDT us Jerilyn iWley MD MICROBIOLOGY Final Res ult [facility] [address] [place] [address], [place] * (ABNORMAL) CBC AND DIFFERENTIAL (07/18/2024 1:33 PM CDT) WHITE BLOOD CELL COUNT 3.1(L) 3.8 - 10.8 Thousand/u L [facility] RED BLOOD CELL COUNT 4.24 3.80 - 5.10 Million/uL [facility] HEMOGLOBIN 12.9 11.7 - 15.5 g/dL [facility] HEMATOCRIT 40.2 35.0 - 45.0 % [facility] MCV 94.8 80.0 - 100.0 fL [facility] MCH 30.4 27.0 - 33.0 pg [facility] MCHC 32.1 32.0 - 36.0 g/dL [facility] Comment: For adults, a slight decrease in the calculated MCHC value (in the range of 30 to 32 g/dL) is most likely not clinically significant; however, it should be interpreted with caution in correlation with other red cell parameters and the patient's clinical condition. RDW 13.2 11.0 - 15.0 % [facility] PLATELET COUNT 203 140 - 400 Thousand/u L [facility] MPV 12.2 7.5 - 12.5 fL [facility] ABSOLUTE NEUTROPHILS 1,271(L) 1,500 - 7,800 cells/uL [facility] ABSOLUTE LYMPHOCYTES 1,361 850 - 3,900 cells/uL [facility] ABSOLUTE MONOCYTES 375 200 - 950 cells/uL [facility] ABSOLUTE EOSINOPHILS 62 15 - 500 cells/uL [facility] ABSOLUTE BASOPHILS 31 0 - 200 cells/uL [facility] NEUTROPHILS 41 % [facility] LYMPHOCYTES 43.9 % [facility] MONOCYTES 12.1 % [facility] EOSINOPHILS 2.0 % [facility] BASOPHILS 1.0 % [facility] Blood BLOOD SPECIMEN / Unknown 07/18/2024 1:33 PM CDT 07/18/2024 1:33 PM CDT Chandrika GRIDER HEMATOLOGY Final Result [facility] [address] [place] [address], [facility] [address] [place] [address] * (ABNORMAL) UA W/ SEDIMENT EXAM REFLEXED PER CRITERIA [22530.2] - STAT (07/03/2024 11:56 AM CDT) COLOR YELLOW YELLOW [facility] APPEARANCE SLIGHTLY CLOUDY(A) CLEAR [facility] SPECIFIC GRAVITY 1.025 1.001 - 1.035 [facility] PH 6.0 5.0 - 8.0 [facility] GLUCOSE NEGATIVE NEGATIVE [facility] BILIRUBIN NEGATIVE NEGATIVE [facility] KETONES NEGATIVE NEGATIVE [facility] OCCULT BLOOD 2+(A) NEGATIVE [facility] PROTEIN 2+(A) NEGATIVE [facility] NITRITE POSITIVE(A) NEGATIVE [facility] LEUKOCYTE ESTERASE 1+(A) NEGATIVE [facility] WBC UA 10-20(A) < OR = 5 /HPF [facility] RBC UA 10-20(A) < OR = 2 /HPF [facility] SQUAMOUS EPITHELIAL CELLS UA 0-5 < OR = 5 /HPF [facility] BACTERIA UA MANY(A) NONE SEEN /HPF [facility] COMMENTS UA MODERATE MUCOUS THREADS [facility] NOTE UA [facility] Comment: This urine was analyzed for the presence of WBC, RBC, bacteria, casts, and other formed elements. Only those elements seen were reported. Urine URINE SPECIMEN / Unknown 07/03/2024 11:56 AM CDT 07/03/2024 11:56 AM CDT Debi Urban PENCIL SORTER URINE Final Res ult [facility] [address] [place] [address] [facility] [address] [address] * (ABNORMAL) URINE CULTURE [59520.2] - routine (07/03/2024 11:53 AM CDT) CULTURE RESULT(A) 07/05/2024 7:22 AM CDT [facility] CULTURE >100,000 CFU/mL Escherichia coli 07/05/2024 7:22 AM CDT [facility] TRAL [facility] CULTURE <10,000 CFU/mL Multiple organisms probable contaminants 07/05/2024 7:22 AM CDT [facility] Urine URINE SPECIMEN / Unknown Non-Blood / Unknown 07/03/2024 11:53 AM CDT 07/03/2024 11:53 AM CDT Narrative Organism Antibiotic Method Susceptibility Escherichia coli TRIMETHOPRIM/SULF <=04/08: S Escherichia coli AMPICILLIN 8: S Escherichia coli CEFAZOLIN 2: S Escherichia coli CEFAZOLIN-UC 2: S Comment:Cefazolin-UC interpretations are for therapy of uncomplicated UTIs due to E.coli, K.pneumoniae, or P.mirablis. Cefazolin breakpoint is used as a surrogate to predict results for the oral agents - cefdinir, cefuroxime, and cephalexin, when used for therapy of uncomplicated UTIs due to E coli, K, pneumoniae, and P. mirabilis. The FDA recommends cefadroxil susceptibility can be deduced from cefazolin. Escherichia coli GENTAMICIN <=1: S Escherichia coli CEFTRIAXONE <=0.25: S Escherichia coli CEFTAZIDIME <=0.5: S Escherichia coli LEVOFLOXACIN <=0.12: S Escherichia coli CIPROFLOXACIN <=0.06: S Escherichia coli PIPERACILLIN/TAZO <=4: S Escherichia coli AMPICILLIN/SULBACTAM <=2: S Escherichia coli CEFEPIME <=0.12: S Escherichia coli MEROPENEM <=0.25: S Escherichia coli NITROFURANTOIN <=16: S Debi Urban PENCIL SORTER MICROBIOLOGY Final Res ult Performing Organization Address City/[facility]/ZIP Co de Phone Number [facility] [address] [place] [address], * ANTI HIV 1/2 (10/10/2023 1:36 PM CDT) HIV-1/HIV-2 SCREEN Non-Reacti ve Non-Reacti ve 10/10/2023 8:54 PM CDT [facility] Comment:HIV-1 p24 and HIV-1/ HIV-2 Ab Not Detected. Blood BLOOD SPECIMEN / Unknown Non-Lab Butterfly / Unknown 10/10/2023 1:36 PM CDT 10/10/2023 1:37 PM CDT Zeina Waggoner PENCIL SORTER SEND OUTS Final Result Performing Organization Address [facility]/ZIP Co de Phone Number [facility] [address] [place] [address], * GC & CHLAMYDIA DNA PCR [[id number]] (11/05/2021 10:00 AM CDT) CHLAMYDIA PROBE Negative 2:34 AM CDT [facility] N GONORRHOEAE PROBE Negative 11/06/2021 2:34 AM CDT [facility] TRA LABORATORY Other VAGINAL SWAB / Unknown Non-Blood / Unknown 11/05/2021 10:00 AM CDT 11/05/2021 10:19 AM CDT us Gladis Yang MD MICROBIOLOGY Final Resul t [facility] [address] [place] [address], from Last 3 Months or Most Recently Relevant to Health Maintenance Insurance [facility] Advance Directives * Full Code (Latest Code Status on File) Date Activated Date Inactivated Comments 12/01/2021 9:51 AM 12/01/2021 4:34 PM Question Answer Comments Code Status Discussion: Reviewed Preferences Care Teams Black Top Spreader Machine Operator Relationship Specialty Start Date End Date Noelle Peña MD [address] [place] [address] PCP - General Pediatric 06/22/17 Chandrika Ramos MBBS [address] [place] [address] Rheumatology 10/07/23
--- OUTSIDE RECORDS SUMMARY | 2024-09-12 20:06 | XMS_ITS | Patient Health Record ---
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 confirmed frequency returned after she decreased Detrol to 2mg Problem 61339901 Burning with urination (R30.0) Active confirmed Has increased in frequency since she decreased Detrol to 2mg Plan Of Treatment Pending Test Test Name Order Date Abdomen-any 1 View 05/12/2021 US Renal (FRANCIS) w/pre & post void volumes 05/12/2021 Insurance Providers Payer Name Payer Address Payer Phone Subscriber Number Group Number Insured Name Patient Relationship to Insured Coverage Start Date Coverage End Date [facility] [address] [address] [place] [address] [id number] 2000 [id number] Clarissa Morales Self - patient is the [...]
[2024-09-12 20:24] VITALS: BP 112/75; PULSE 94; RESP 16; TEMP 36.7; O2SAT 97; BMI 26.7
--- NOTE | 2024-09-12 22:30 | ED_ITS ---
HPI - General Adult General Chief complaint: Abdominal Pain Stated complaint: Suspected umbilical hernia Time Seen by Provider: 09/12/24 22:30 History of Present Illness HPI narrative: Pt here for eval of poss umbilical hernia. Reports pain at umbilicus/ not feeling well since Tuesday. Noticed lump at umbilicus today. Reports nausea today, vomiting yesterday. Hx IBS, multiple abdominal surgeries. 19-year-old woman presenting to the emergency department with concern of pote ntially umbilical hernia. Does have a history of a number of abdominal surgeries including cholecystectomy and exploratory laparotomy. Does not think that has been passing gas this evening but that would not be unusual. Has IBS; constipation predominant. She has been having some discomfort over the last couple of days and then noticed more of a lump at her belly button today. Did vomit yesterday. No noted fever. Does have an umbilical piercing just removed her piercing. Related Data Home Medications ?Medication ?Instructions ?Recorded ?Confirmed adapalene 0.3 % topical gel 1 applic topical 03/26/22 02/02/24 clindamycin phosphate 1 % lotion 1 applic topical 09/1002/02/24 lamotrigine 200 mg tablet 200 mg PO DAILY 03/26/22 trazodone 50 mg tablet 100 mg PO QDAY 06/11/2208/20 sertraline 100 mg tablet 175 mg PO DAILY 06/13/23 lorazepam 1 mg tablet 1 mg PO DAILY 09/29/2309/12 cyclobenzaprine 5 mg tablet 5 mg PO QPM 09/12/2409/12 dextroamphetamine-amphetamine ER 1 cap PO QAM 09/12/24 09/12/24 15 mg 24hr capsule,extend release ferrous sulfate, dried 159 mg (45 159 mg PO DAILY 08/2009/12/24 mg iron) tablet,extended release (iron ER) folic acid 1 mg tablet 1 mg PO DAILY 09/12/2409/12 methotrexate sodium (PF) 25 mg/mL 20 mg subcut .weekly 09/12/24 09/12/24 injection solution Allergies Allergy/AdvReac Type Severity Reaction Status Date / Time No Known Drug Allergies Allergy Verified 09/12/24 20:21 Review of Systems Status of ROS: Reports: 6 or more systems reviewed and unremarkable except as noted in History and below [facility] Medical History Conjunctivitis ?H10.9 - Unspecified conjunctivitis (ICD-10) Recurrent sinusitis ?J32.9 - Chronic sinusitis, unspecified (ICD-10) Osteochondroma of bone ?D16.9 - Benign neoplasm of bone and articular cartilage, unspecified (ICD- 10) Dyspareunia Chronic pelvic pain in female ?R10.2 - Pelvic and perineal pain (ICD-10) ?G89.29 - Other chronic pain (ICD-10) Anxiety and depression ?F41.9 - Anxiety disorder, unspecified (ICD-10) ?F32.A - Depression, unspecified (ICD-10) Surgical History Hx of cystoscopy ?Z98.890 - Other specified postprocedural states (ICD-10) History of surgical removal of ganglion cyst ?Z98.890 - Other specified postprocedural states (ICD-10) History of cholecystectomy ?Z90.49 - Acquired absence of other specified parts of digestive tract (ICD- 10) History of laparoscopy ?Z98.890 - Other specified postprocedural states (ICD-10) Social History Narrative: 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 Occasional E cigarette use. Occasional alcohol use. Occasional marijuana use Smoking Status: Former smoker Do you use any of these nicotine containing products: Vaping Products How often do you have a drink containing alcohol: 2-3 times a week Alcohol type: wine and hard liquor How many standard drinks containing alcohol do you have on a typical day: 1 or 2 How often do you have six or more drinks on one occasion: Never AUDIT-C Alcohol total score: 3 Non-prescribed substance use: denies use Non-prescribed substance use details: gummies occ Caffeine: No Are you using contraception or practicing any form of control: No Exam Narrative: Exam Narrative: Pleasant. NAD. Seems uncomfortable but not demonstrating. Breathing easily. Abdomen with present bowel sounds soft. Scar on the right wrist consistent with ganglion cyst removal. Heart in mildly elevated rate regular rhythm. Abdomen is soft. Without peritoneal signs. Initially tender across the mid and low abdomen but with further exam it is clear that pain is isolated to the umbilicus. There is not particularly inflamed piercing with small umbilical swelling within marble-sized. Mildly erythematous; really more pink. No induration to the skin. Surgical scar runs over the top of this small swelling. Quite tender to palpation in this area. I do attempt some palpation to reduce what I think is likely an incisional/umbilical hernia but it is too sensitive. Const: Vital Signs, click to edit/add: Vital Signs - 24 hr 09/12/24 20:24 09/12/24 23:03 09/12/24 23:14 Temperature 98.1 F Pulse Rate [Pulse Oximeter] 94 79 Respiratory Rate 16 18 Blood Pressure [Ri ght Upper Arm] 112/75 113/73 Pulse Oximetry 97 97 97 Oxygen Delivery Me thod Room Air Room Air 09/13/24 00:31 Temperature Pulse Rate [Pulse Oximeter] 82 Respiratory Rate 18 Blood Pressure [Ri ght Upper Arm] Pulse Oximetry 97 Oxygen Delivery Me thod Room Air Documenting provider has reviewed patient's vital signs: yes Course Vital Signs Vital signs: Initial Vital Signs Temperature 98.1 F 09/12/24 20:24 Temperature Source Temporal Artery Scan 09/12/24 20:24 Pulse Rate 94 09/12/24 20:24 Pulse Rhythm Regular 09/12/24 20:24 Respiratory Rate 16 09/12/24 20:24 Blood Pressure 112/75 09/12/24 20:24 Blood Pressure Mean 87 09/12/24 20:24 Blood Pressure Position Sitting 09/12/24 20:24 Pulse Oximetry 97 09/12/24 20:24 Oxygen Delivery Method Room Air 09/12/24 20:24 Vital Signs Temperature 98.1 F 09/12/24 20:24 Pulse Rate 94 09/12/24 20:24 Respiratory Rate 16 09/12/24 20:24 Blood Pressure 112/75 09/12/24 20:24 Pulse Oximetry 97 09/12/24 20:24 Oxygen Delivery Method Room Air 09/12/24 20:24 Temperature 98.1 F 09/12/24 20:24 Pulse Rate 82 09/13/24 00:31 Respiratory Rate 18 09/13/24 00:31 Blood Pressure 113/73 09/12/24 23:03 Pulse Oximetry 97 09/13/24 00:31 Oxygen Delivery Method Room Air 09/13/24 00:31 Medications Administered Medications: Discontinued Medications Generic Name Dose Route Start Last Admin Trade Name Delmy VILA Reason Stop Dose Admin Diazepam 5 mg 09/12/24 22:44 09/12/24 23:13 Diazepam 5 Mg/Ml Inj IV 09/12/24 22:45 5 mg ONCE ONE Administration Fentanyl 50 mcg 09/12/24 22:44 09/12/24 23:13 Fentanyl 100 Mcg/2 Ml Inj IVP 09/12/24 22:45 50 mcg ONCE ONE Administration Fentanyl 50 mcg 09/12/24 23:30 09/12/24 23:45 Fentanyl 100 Mcg/2 Ml Inj IVP 09/12/24 23:31 50 mcg ONCE ONE Administration Medical Decision Making MDM Narrative Medical decision making narrative: I do think this is a hernia. This might be incarcerated tissue. Doubtful brandon l/sbo but possible. Does not appear to be a cellulitis or infection related to this piercing. Returned to place ice pack. IV as well and ordered for fentanyl and Valium after discussion of options. With medication on board able to manipulate further and did result I think in reduction of this swelling by about half. With increase though in pain dosed again with some fentanyl and returned later after more icing. Swelling had enlarged a little bit in the interim but able to reduce again a little more beyond what had been accomplished earlier but ultimately not able to completely reduce. At this point will be doing abdominal CT imaging to evaluate further Anticipate handing off a change of shift Medical Records Medical records reviewed: Yes I reviewed the patient's medical records Discharge Plan Discharge Clinical Impression: Umbilical hernia Patient Disposition: Home w/ Parent or Adult Condition: Stable Prescriptions: No Action lamotrigine 200 mg tablet 200 mg PO DAILY Patient Comments: TAKE 1 TABLET BY MOUTH ONCE A DAY adapalene 0.3 % gel 1 applic topical Patient Comments: APPLY PEA SIZED AMOUNT TO FACE EVERY NIGHT clindamycin phosphate 1 % lotion 1 applic topical trazodone 50 mg tablet 100 mg PO QDAY sertraline 100 mg tablet 175 mg PO DAILY lorazepam 1 mg tablet 1 mg PO DAILY methotrexate sodium (PF) 25 mg/mL solution 20 mg subcut .weekly folic acid 1 mg tablet 1 mg PO DAILY dextroamphetamine-amphetamine 15 mg capsule,extended release 24hr 1 cap PO QAM cyclobenzaprine 5 mg tablet 5 mg PO QPM iron 159 mg (45 mg iron) tablet extended release 159 mg PO DAILY Follow Up/Referrals: Noelle Peña MD [Primary Care Provider, Pediatrics] Stand Alone Forms: Shopping Mail Info Instructions
[2024-09-12 23:03] VITALS: BP 113/73; PULSE 79; RESP 18; O2SAT 97
[2024-09-12] MEDS: diazePAM 5 MG/ML inj IV (23:13)
[2024-09-12] MEDS: fentaNYL 100 MCG/2 ML inj 50 MCG IVP ×2 (23:13→23:45)
[2024-09-12 23:14] VITALS: O2SAT 97
--- NOTE | 2024-09-13 00:07 | CT_ITS ---
Patient: EDI PATEL Facility:?[facility] Patient ID:?[id number] Site Patient ID:?[id number]. Site :?[id number] Study:?CT-Abdomen W/O-09/13/2024 1:16:12 AM Ordering Physician:MONICA Final Report: Indication: Mid abdominal pain, concern for incarcerated umbilical hernia Technique: Noncontrast CT through the abdomen with multiplanar reformats. Comparison: None Findings: Lower chest: Bibasilar atelectasis and/or scarring. Hepatobiliary: No significant parenchymal abnormality is appreciated. Cholecystectomy. Spleen: Unremarkable. Pancreas: No acute abnormality appreciated. Adrenal glands: No acute abnormality appreciated. Kidneys: No significant parenchymal abnormality appreciated. No visualized calculi. No hydronephrosis. Bowel: No obstruction. No focal perienteric or pericolonic stranding is appreciated. Vascular: Poorly evaluated on this noncontrast examination. Lymph nodes: No gross lymphadenopathy. Peritoneum: No free air. No free fluid. Soft tissues: Prominent navel versus tiny fat containing umbilical hernia. No evidence of involvement by bowel. No definite vessels involved. No stranding underlying this focus. Bones: No acute fracture. No lytic or blastic lesion. Impression: 1. Any previous report on this examination, if available, should be discounted as due to IT issues, incorrect images on a separate patient had been loaded. 2. There is a prominent navel versus tiny umbilical hernia with no bowel and suspect no vessel involvement. No stranding in the soft tissues deep to this focus. No other significant abnormal findings appreciated. Please note that all CT scans at this facility use dose modulation, iterative reconstruction, and/or weight-based dosing when appropriate to reduce radiation dose to as low as reasonably achievable. Dictated by Jose Wharton MD @ 09/13/2024 2:00:09 AM Signed by:?Jose Wharton MD @09/13/2024 2:00:09 AM (Electronic Signature)
[2024-09-13 00:31] VITALS: PULSE 82; RESP 18; O2SAT 97
[2024-09-13] MEDS: fentaNYL 100 MCG/2 ML inj 50 MCG IVP (02:16)
[2024-09-13 02:22] VITALS: BP 110/70; PULSE 71; RESP 18; TEMP 36.7; O2SAT 97
[2024-09-13 02:29] VITALS: BP 110/70; PULSE 71; RESP 18; TEMP 36.7
== END 2024-09-13 02:29 | disposition home or self-care (01) ==
PROVIDERS: Emergency Provider Family Medicine; PCP Pediatrics
DX: K42.9 Umbilical hernia without obstruction or gangrene (principal); R10.9 Unspecified abdominal pain; R11.2 Nausea with vomiting, unspecified; K58.9 Irritable bowel syndrome, unspecified
CPT/HCPCS: 74150; 94761; 96374; 96375; 96376; 99284; J3010; J3360

== ENCOUNTER 2024-10-30 15:59 | Outpatient (CLI) | payer BC, SELFPAY ==
[2024-11-06 10:06] LABS: Pap Test Digital Imaging Done
== END 2024-10-30 16:00 | disposition home or self-care (01) ==
LOC: NFLDREF 16:00
PROVIDERS: PCP Pediatrics; Visit Provider Obstetrics & Gynecology
DX: Z12.4 Encounter for screening for malignant neoplasm of cervix (principal)
CPT/HCPCS: 87624; 87625; 88141; 88142; 88175

== ENCOUNTER 2025-02-28 13:55 | Outpatient (CLI) | payer BC, SELFPAY ==
--- NOTE | 2025-02-28 13:45 | CRLHL7_ITS ---
For Patients: As a result of the Century Cures Act, medical imaging exams and procedure reports are released immediately into your electronic medical record. You may view this report before your referring provider. If you have questions, please contact your health care provider. CLINICAL HISTORY: pelvic pain, AUB COMPARISON: None. TECHNIQUE: 2D diaz-scale ultrasound. In addition, color Doppler and spectral Doppler analysis was performed of the pelvis using a transabdominal and transvaginal approach. Transvaginal imaging performed to better visualize the endometrial stripe and ovaries. FINDINGS: The myometrium has a normal uniform echotexture. Arcuate morphology noted. Uterus measures 7.3 x 2.4 x 3.5 cm. The endometrial lining appears normal and measures 5.4 mm in thickness. The right ovary measures 3.9 x 2.3 x 2.2 cm in size and the left ovary measures 3.0 x 1.7 x 1.7 cm. The ovaries demonstrate normal arterial and venous blood flow on color Doppler and spectral Doppler analysis. There are no suspicious fluid collections within the cul-de-sac. IMPRESSION: No torsion or adnexal mass. Endometrial thickness 5.4 millimeters. Dictated by Jason Jerez MD @ 02/28/2025 3:12:28 PM (Electronically Signed)
== END 2025-02-28 13:56 | disposition home or self-care (01) ==
LOC: US 13:56
PROVIDERS: PCP Pediatrics; Visit Provider Obstetrics & Gynecology
DX: R10.20 Pelvic and perineal pain unspecified side (principal); R93.89 Abnormal findings on diagnostic imaging of other specified body structures; G89.29 Other chronic pain
CPT/HCPCS: 76830; 76856; 93976